=== PATIENT | female | born 1975 | race African-American/Black ===

== ENCOUNTER 2017-07-20 20:59 | Emergency (ER) | payer SELFPAY ==
[~2017-07-20] VITALS: Ht 162.6 cm; Wt 119.7 kg
[~2017-07-20 20:59] MED LIST: ASPI-231 PO; ATEN-60 PO; CLON0.2T PO; DIVA500T53 PO; FLUO20CA19 PO; HYDR-4663 PO; NIFE30TA66 PO; QUET300T14 PO; RISP2TAB62 PO; SPIR100T21 PO
[2017-07-21 03:10] VITALS: BP 146/90
[2017-07-21] MEDS ORDERED: cloNIDine HCL 0.1 MG TAB PO ONE (03:45)
[2017-07-21] MEDS ORDERED: diphenhdrAMINE HCL 25 MG CAP PO ONE (04:00)
[2017-07-21] MEDS ORDERED: KETOROLAC TROMETH 30 MG/ML 1ML VIAL IV ONE (04:00)
[2017-07-21] MEDS ORDERED: PROMETHAZINE HCL 25 MG/ML 1ML IM ONE (04:00)
[2017-07-21] MEDS ORDERED: KETOROLAC TROMETH 30 MG/ML 1ML VIAL IM ONE (04:15)
== END 2017-07-21 04:54 | disposition home or self-care (01) ==
LOC: ER 21:08 → EDUNIT# 21:08 → ER 07-21 04:53
DX: I10 Essential (primary) hypertension (principal); E11.9 Type 2 diabetes mellitus without complications
CPT/HCPCS: 70450; 96372; 99284; J1885; J2550

== ENCOUNTER 2018-02-14 19:03 | Emergency (ER) | payer MEDICARE, OTHER ==
[~2018-02-14] VITALS: Ht 165.1 cm; Wt 127.0 kg
[~2018-02-14 19:03] MED LIST changes: +DIVA500T59 PO; +FLUO-125 PO; -HYDR-4663 PO; +HYDR-4683 PO; +LEVO25TA6 PO; +NIFE90TA30 PO; +QUET300T23 PO; +TIZA4CAP7 PO; +TRIA0.1P11 TOP
[2018-02-14 19:24] VITALS: BP 193/122
[2018-02-14] MEDS ORDERED: cloNIDine HCL 0.1 MG TAB ONE (19:28)
[2018-02-14] MEDS ORDERED: cloNIDine HCL 0.1 MG TAB PO ONE (19:45)
[2018-02-14 20:31] LABS: Albumin 4.4 g/dL (3.4-5.0); BUN/Creatinine Ratio 9.2; Bilirubin, Total 0.4 mg/dL (0.2-1.0); Calcium 9.7 mg/dL (8.5-10.1); Potassium 3.4 mmol/L (3.5-5.1); Total Protein 9.6 g/dL (6.4-8.2)
[2018-02-14 21:43] LABS: Basophils # (auto) 0 uL; Basophils % (auto) 0.5 % (0.0-2.0); Eosinophils # (auto) 0.1 uL; Eosinophils % (auto) 0.8 % (0.0-7.0); Hematocrit 36.5 % (36.0-46.0); Hemoglobin 11.9 g/dL (12.2-16.2); Lymphocytes # (auto) 2.6 uL; Lymphocytes % (auto) 32.9 % (10.0-50.0); Mean Corpuscular Hemoglobin 27.7 pg (28.0-32.0); Mean Corpuscular Hgb Conc. 32.6 g/dL (32.0-36.0); Mean Corpuscular Volume 84.8 fL (80.0-100.0); Monocytes # (auto) 0.6 uL; Monocytes % (auto) 7.2 % (0.0-12.0); Neutrophils # (auto) 4.7 uL; Neutrophils % (auto) 58.6 % (37.0-80.0); Nucleated Red Blood Cells % 0.1 %; Platelet Count (auto) 294 10^3/uL (140-450); Red Cell Distribution Width 15.5 % (11.8-14.3)
== END 2018-02-14 22:23 | disposition left against medical advice (07) ==
LOC: ER 19:03
DX: R42 Dizziness and giddiness (principal); I10 Essential (primary) hypertension; Z53.21 Procedure and treatment not carried out due to patient leaving prior to being seen by health care provider
CPT/HCPCS: 36415; 70450; 80053; 83735; 84484; 85025; 93005

== ENCOUNTER 2018-06-14 19:12 | Emergency (ER) | payer MEDICARE, OTHER ==
[~2018-06-14] VITALS: Ht 165.1 cm; Wt 123.4 kg
[2018-06-14 22:51] LABS: Basophils # (auto) 0 uL; Basophils % (auto) 0.4 % (0.0-2.0); Eosinophils # (auto) 0 uL; Eosinophils % (auto) 0.7 % (0.0-7.0); Hematocrit 39.3 % (36.0-46.0); Hemoglobin 12.8 g/dL (12.2-16.2); Lymphocytes # (auto) 2.2 uL; Mean Corpuscular Hemoglobin 27.9 pg (28.0-32.0); Mean Corpuscular Hgb Conc. 32.6 g/dL (32.0-36.0); Mean Corpuscular Volume 85.6 fL (80.0-100.0); Monocytes # (auto) 0.9 uL; Monocytes % (auto) 13.4 % (0.0-12.0); Neutrophils # (auto) 3.6 uL; Neutrophils % (auto) 53.5 % (37.0-80.0); Nucleated Red Blood Cells % 0.1 %; Platelet Count (auto) 212 10^3/uL (140-450); Red Blood Cells 4.59 10^6/uL (4.0-5.20); Red Cell Distribution Width 15.8 % (11.8-14.3); White Blood Cell 6.8 10^3/uL (4.4-10.8)
[2018-06-14 23:10] LABS: Alanine Aminotransferase 15 U/L (13-56); Albumin 3.6 g/dL (3.4-5.0); Anion Gap 11 (5-15); Aspartate Aminotransferase 10 U/L (15-37); BUN/Creatinine Ratio 15.4; Blood Urea Nitrogen 18 mg/dL (7-18); Calcium 8.5 mg/dL (8.5-10.1); Carbon Dioxide 23 mmol/L (21-32); Chloride 102 mmol/L (98-107); GFR African American 64 mL/min; GFR Non-African American 53 mL/min; Glucose 98 mg/dL (74-106); Potassium 3.4 mmol/L (3.5-5.1); Sodium 136 mmol/L (136-145)
[2018-06-14 23:13] LABS: Alkaline Phosphatase 89 U/L (45-117); Bilirubin, Total 0.2 mg/dL (0.2-1.0); Total Protein 8.8 g/dL (6.4-8.2)
[2018-06-15] MEDS ORDERED: cloNIDine HCL 0.1 MG TAB PO ONE (01:00)
[2018-06-15] MEDS ORDERED: cloNIDine HCL 0.1 MG TAB ONE (01:01)
[2018-06-15 01:05] LABS: Urine Bacteria FEW /hpf (None Seen); Urine Blood 3+ /uL (Negative); Urine Specific Gravity 1.007 (1.001-1.035); Urine WBC 2 /hpf (0 - 5)
[2018-06-15 04:08] LABS: INR 0.96 (0.9-1.15); Partial Thromboplastin Time 27.8 sec (23.78-33.04); Prothrombin Time 10.3 sec (9.27-12.13)
[2018-06-15] MEDS ORDERED: HYDROcodone-ACET 5/325MG TAB PO ONE (04:15)
[2018-06-15 05:47] VITALS: BP 161/111
== END 2018-06-15 06:12 | disposition home or self-care (01) ==
LOC: ER 19:12
DX: N93.8 Other specified abnormal uterine and vaginal bleeding (principal); I10 Essential (primary) hypertension; E11.9 Type 2 diabetes mellitus without complications; Z79.899 Other long term (current) drug therapy; Z90.49 Acquired absence of other specified parts of digestive tract
CPT/HCPCS: 36415; 74176; 80053; 81001; 81025; 85025; 85379; 85610; 85730

== ENCOUNTER 2018-06-23 15:18 | Emergency (ER) | payer OTHER ==
[~2018-06-23] VITALS: Ht 165.1 cm; Wt 123.4 kg
[~2018-06-23 15:18] MED LIST changes: -SPIR100T21 PO; +SPIR100T4 PO
[2018-06-23 15:44] VITALS: BP 158/102
[2018-06-23] MEDS ORDERED: HYDROcodone-ACET 10/325MG TAB PO ONE (17:15)
[2018-06-23] MEDS ORDERED: KETOROLAC TROMETH 60MG/2ML VIAL IM ONE (17:15)
[2018-06-23 17:55] LABS: Urine Amorphous Crystal FEW /hpf (None Seen); Urine Bacteria FEW /hpf (None Seen); Urine Blood Negative /uL (Negative); Urine Mucus FEW (None Seen); Urine Specific Gravity 1.013 (1.001-1.035); Urine WBC 23 /hpf (0 - 5)
== END 2018-06-23 18:17 | disposition home or self-care (01) ==
LOC: ER 15:24
DX: N39.0 Urinary tract infection, site not specified (principal); E11.9 Type 2 diabetes mellitus without complications; I10 Essential (primary) hypertension; Z90.49 Acquired absence of other specified parts of digestive tract; Z98.51 Tubal ligation status
CPT/HCPCS: 81001; 96372; 99283; J1885

== ENCOUNTER 2020-07-09 08:02 | Inpatient (IN) | payer OTHER, MEDICAID ==
[~2020-07-09] VITALS: Ht 160 cm; Wt 96.7 kg
[~2020-07-09 08:02] MED LIST changes: +DIVA500T13 PO; -DIVA500T59 PO; -HYDR-4683 PO; +HYDR-4833 PO; -NIFE90TA30 PO; +NIFE90TA49 PO
[2020-07-09] MEDS ORDERED: cloNIDine HCL 0.1 MG TAB PO ONE (08:30)
[2020-07-09] MEDS ORDERED: SODIUM CHLORIDE 0.9% 1,000 ML IV ONE (08:30)
[2020-07-09 09:11] LABS: Basophils # (auto) 0 10 ^3/uL (0-0.2); Eosinophils # (auto) 0.1 10 ^3/uL (0-0.8); Eosinophils % (auto) 1.4 % (0.0-7.0); Hemoglobin 10.3 g/dL (12.2-16.2); Mean Corpuscular Volume 79.7 fL (80.0-100.0); Monocytes # (auto) 0.5 10 ^3/uL (0-1.3); White Blood Cell 5.2 10^3/uL (4.4-10.8)
[2020-07-09 09:13] LABS: Basophils % (auto) 0.8 % (0.0-2.0); Hematocrit 31.3 % (36.0-46.0); Lymphocytes # (auto) 1.8 10 ^3/uL (0.4-5.4); Lymphocytes % (auto) 34.3 % (10.0-50.0); Mean Corpuscular Hemoglobin 26.2 pg (28.0-32.0); Mean Corpuscular Hgb Conc. 32.9 g/dL (32.0-36.0); Monocytes % (auto) 8.8 % (0.0-12.0); Neutrophils # (auto) 2.8 10 ^3/uL (1.6-8.6); Neutrophils % (auto) 54.7 % (37.0-80.0); Nucleated Red Blood Cells % 0.1 %; Platelet Count (auto) 280 10^3/uL (140-450); Red Blood Cells 3.93 10^6/uL (4.0-5.20); Red Cell Distribution Width 15.9 % (11.8-14.3)
[2020-07-09 09:27] LABS: INR 1.03 (0.9-1.15); Partial Thromboplastin Time 27.7 sec (23.0-31.2)
[2020-07-09 09:29] LABS: Alanine Aminotransferase 17 U/L (13-56); Albumin 3.5 g/dL (3.4-5.0); Anion Gap 6 (5-15); Aspartate Aminotransferase 16 U/L (15-37); Blood Urea Nitrogen 13 mg/dL (7-18); Calcium 8.7 mg/dL (8.5-10.1); Carbon Dioxide 27 mmol/L (21-32); Chloride 106 mmol/L (98-107); GFR African American 83 mL/min; GFR Non-African American 69 mL/min; Glucose 98 mg/dL (74-106); Magnesium 1.8 mg/dL (1.6-2.6); Potassium 3.1 mmol/L (3.5-5.1); Sodium 139 mmol/L (136-145)
[2020-07-09 09:34] LABS: Alkaline Phosphatase 80 U/L (45-117); Bilirubin, Total 0.3 mg/dL (0.2-1.0); Total Protein 7.5 g/dL (6.4-8.2)
[2020-07-09] MEDS ORDERED: NITROGLYCERIN 50MG/250ML 0 ML IV ONE (09:36)
[2020-07-09 09:53] LABS: Urine Bacteria FEW /hpf (None Seen); Urine Blood Negative /uL (Negative); Urine Specific Gravity 1.014 (1.001-1.035); Urine WBC 2 /hpf (0 - 5)
[2020-07-09] MEDS ORDERED: POTASSIUM EFFERVESENT TAB 25 MEQ PO ONE (11:45)
[2020-07-09] MEDS ORDERED: ACETAMINOPHEN 500 MG TAB PO ONE (13:15)
[2020-07-09] MEDS ORDERED: HYDR-4072 (13:43)
[2020-07-09] MEDS ORDERED: TIZA4TAB3 PO (13:43)
[2020-07-09] MEDS ORDERED: SIMV-8 PO (13:43)
[2020-07-09] MEDS ORDERED: FLUO20CA90 PO (13:43)
[2020-07-09] MEDS ORDERED: amLODIPine BESYLATE 5 MG TAB PO SCH (13:45)
[2020-07-09] MEDS ORDERED: HYDROcodone-ACET 10/325MG TAB PO PRN (13:45)
[2020-07-09] MEDS ORDERED: cloNIDine HCL 0.1 MG TAB PO SCH (14:00)
[2020-07-09] MEDS ORDERED: NITROGLYCERIN 0.4 MG SL TAB SL PRN (14:00)
[2020-07-09] MEDS ORDERED: MORPHINE SULF INJ 2 MG/ML SYRINGE 1ML IV PRN (14:00)
[2020-07-09] MEDS ORDERED: METOPROLOL TARTRATE 25 MG TAB PO SCH (14:00)
[2020-07-09 19:25] VITALS: BP 168/98
[2020-07-09] MEDS ORDERED: ENALAPRIL MALEATE 2.5 MG TAB PO PRN (20:45)
[2020-07-10] MEDS ORDERED: FLUoxetine HCL 20 MG CAP PO SCH (10:00)
== END 2020-07-09 21:15 | disposition left against medical advice (07) | DRG 305 ==
LOC: ER 08:02 → OVERFLOW 08:03
PROVIDERS: ADMIT Internal Medicine; ATTEND Internal Medicine
DX: I16.9 Hypertensive crisis, unspecified (principal); I10 Essential (primary) hypertension; D63.8 Anemia in other chronic diseases classified elsewhere; E11.9 Type 2 diabetes mellitus without complications; E78.5 Hyperlipidemia, unspecified; E87.6 Hypokalemia; F32.9 Major depressive disorder, single episode, unspecified; F41.9 Anxiety disorder, unspecified; Z82.3 Family history of stroke; Z82.49 Family history of ischemic heart disease and other diseases of the circulatory system; Z83.3 Family history of diabetes mellitus; Z90.5 Acquired absence of kidney; Z79.899 Other long term (current) drug therapy
CPT/HCPCS: 36415; 71046; 80053; 81001; 83735; 83880; 84443; 84484; 85025; 85610; 85730; 93005; 96361; 96365; G0378

== ENCOUNTER 2020-10-09 22:11 | Inpatient (IN) | payer OTHER, MEDICAID ==
[~2020-10-09] VITALS: Ht 160 cm; Wt 99.8 kg
[~2020-10-09 22:11] MED LIST changes: +FLUO20CA90 PO; +HYDR-4072; +SIMV-8 PO; +TIZA4TAB3 PO
[2020-10-09] MEDS ORDERED: cloNIDine HCL 0.1 MG TAB ONE (22:28)
[2020-10-09] MEDS ORDERED: cloNIDine HCL 0.1 MG TAB PO ONE (22:45)
[2020-10-09 23:25] LABS: Eosinophils # (auto) 0.1 10 ^3/uL (0-0.8); Eosinophils % (auto) 1.3 % (0.0-7.0); Monocytes # (auto) 0.7 10 ^3/uL (0-1.3); Neutrophils # (auto) 3.7 10 ^3/uL (1.6-8.6)
[2020-10-09 23:26] LABS: Basophils # (auto) 0 10 ^3/uL (0-0.2); Basophils % (auto) 0.7 % (0.0-2.0); Hematocrit 32.2 % (36.0-46.0); Hemoglobin 10.6 g/dL (12.2-16.2); Lymphocytes # (auto) 2.1 10 ^3/uL (0.4-5.4); Lymphocytes % (auto) 31.7 % (10.0-50.0); Mean Corpuscular Hemoglobin 24.8 pg (28.0-32.0); Mean Corpuscular Hgb Conc. 32.8 g/dL (32.0-36.0); Mean Corpuscular Volume 75.8 fL (80.0-100.0); Monocytes % (auto) 11.1 % (0.0-12.0); Neutrophils % (auto) 55.2 % (37.0-80.0); Platelet Count (auto) 293 10^3/uL (140-450); Red Blood Cells 4.25 10^6/uL (4.0-5.20); White Blood Cell 6.7 10^3/uL (4.4-10.8)
[2020-10-09 23:36] LABS: INR 0.99 (0.9-1.15); Partial Thromboplastin Time 26.2 sec (23.0-31.2)
[2020-10-09 23:47] LABS: Albumin 3.7 g/dL (3.4-5.0); Anion Gap 9 (5-15); BUN/Creatinine Ratio 20.3; Blood Urea Nitrogen 26 mg/dL (7-18); Calcium 8.8 mg/dL (8.5-10.1); Carbon Dioxide 23 mmol/L (21-32); Chloride 107 mmol/L (98-107); GFR African American 57 mL/min; GFR Non-African American 48 mL/min; Glucose 97 mg/dL (74-106); Magnesium 1.8 mg/dL (1.6-2.6); Potassium 3.6 mmol/L (3.5-5.1); Sodium 139 mmol/L (136-145)
[2020-10-09 23:58] LABS: Alanine Aminotransferase 18 U/L (13-56); Alkaline Phosphatase 86 U/L (45-117); Aspartate Aminotransferase 11 U/L (15-37); Bilirubin, Total 0.2 mg/dL (0.2-1.0); Total Protein 8.2 g/dL (6.4-8.2)
[2020-10-10] MEDS ORDERED: hydrALAZINE HCL 20 MG/ML VL IV ONE ×2 (01:45→05:45)
[2020-10-10] MEDS ORDERED: MORPHINE SULF INJ 2 MG/ML SYRINGE 1ML IV ONE (02:45)
[2020-10-10] MEDS ORDERED: ONDANSETRON HCL 4 MG/2 ML VIAL IV ONE (02:45)
[2020-10-10] MEDS ORDERED: IOHEXOL 350 MG/ML 100ML IJ ONE (03:34)
[2020-10-10] MEDS ORDERED: ACETAMINOPHEN 325 MG TAB PO PRN (08:00)
[2020-10-10] MEDS ORDERED: ONDANSETRON HCL 4 MG/2 ML VIAL IV PRN (08:00)
[2020-10-10] MEDS ORDERED: MORPHINE SULF INJ 2 MG/ML SYRINGE 1ML IV PRN (08:00)
[2020-10-10] MEDS ORDERED: TEMAZEPAM 15 MG CAP PO PRN (08:00)
[2020-10-10] MEDS ORDERED: HYDROcodone-ACET 5/325MG TAB PO PRN (08:00)
[2020-10-10] MEDS ORDERED: NITROGLYCERIN 0.4 MG SL TAB SL PRN (08:00)
[2020-10-10] MEDS ORDERED: PANTOPRAZOLE 40 MG TAB PO SCH (10:00)
[2020-10-10] MEDS ORDERED: NIFEdipine ER 30 MG TAB PO SCH (10:00)
[2020-10-10] MEDS ORDERED: ASPirin 81 mg TAB PO SCH (10:00)
[2020-10-10] MEDS ORDERED: ATENOLOL 25 MG TAB PO SCH (10:00)
[2020-10-10] MEDS ORDERED: FLUoxetine HCL 20 MG CAP PO SCH (10:00)
[2020-10-10 12:58] VITALS: BP 143/81
[2020-10-10] MEDS ORDERED: ATORVASTATIN 20 MG TAB PO SCH (22:00)
[2020-10-11] MEDS ORDERED: LEVOTHYROXINE SODIUM 25 MCG TAB PO SCH (07:00)
== END 2020-10-10 17:55 | disposition home health service (06) | DRG 445 ==
LOC: EDBD 22:11 → ER 22:13 → OVERFLOW 22:14
PROVIDERS: ADMIT Nurse Practitioner; ATTEND Internal Medicine
DX: K80.20 Calculus of gallbladder without cholecystitis without obstruction (principal); N17.9 Acute kidney failure, unspecified; I16.0 Hypertensive urgency; E11.22 Type 2 diabetes mellitus with diabetic chronic kidney disease; E66.01 Morbid (severe) obesity due to excess calories; F31.9 Bipolar disorder, unspecified; I12.9 Hypertensive chronic kidney disease with stage 1 through stage 4 chronic kidney disease, or unspecified chronic kidney disease; F41.0 Panic disorder [episodic paroxysmal anxiety]; R07.89 Other chest pain; E03.9 Hypothyroidism, unspecified; E78.5 Hyperlipidemia, unspecified; N18.30 Chronic kidney disease, stage 3 unspecified; Z82.3 Family history of stroke; Z90.49 Acquired absence of other specified parts of digestive tract; Z98.51 Tubal ligation status; Z82.49 Family history of ischemic heart disease and other diseases of the circulatory system; Z83.3 Family history of diabetes mellitus; Z90.5 Acquired absence of kidney
CPT/HCPCS: 36415; 71045; 71275; 74176; 76705; 76775; 80053; 83735; 83880; 84443; 84484; 85025; 85379; 85610; 85730; 87040; 93005; 93306; 99291; G0378; J2405

== ENCOUNTER 2021-05-31 14:06 | Inpatient (IN) | payer OTHER, MEDICAID ==
[~2021-05-31] VITALS: Ht 162.6 cm; Wt 97.5 kg
[~2021-05-31 14:06] MED LIST changes: -DIVA500T13 PO; +DIVA500T2 PO; -DIVA500T53 PO; -FLUO-125 PO; -FLUO20CA90 PO; -HYDR-4833 PO; -NIFE30TA66 PO; -QUET300T23 PO; -TIZA4CAP7 PO; -TRIA0.1P11 TOP
[2021-05-31 16:47] LABS: Basophils # (auto) 0.1 10 ^3/uL (0-0.2); Eosinophils # (auto) 0 10 ^3/uL (0-0.8); Eosinophils % (auto) 0.4 % (0.0-7.0); Hemoglobin 11.5 g/dL (12.2-16.2); Lymphocytes # (auto) 1.4 10 ^3/uL (0.4-5.4); Lymphocytes % (auto) 18.7 % (10.0-50.0); Mean Corpuscular Hemoglobin 22.6 pg (28.0-32.0); Mean Corpuscular Hgb Conc. 31.9 g/dL (32.0-36.0); Mean Corpuscular Volume 70.9 fL (80.0-100.0); Monocytes # (auto) 0.4 10 ^3/uL (0-1.3); Monocytes % (auto) 4.9 % (0.0-12.0); Neutrophils # (auto) 5.6 10 ^3/uL (1.6-8.6); Nucleated Red Blood Cells % 0.1 %; Red Blood Cells 5.08 10^6/uL (4.0-5.20); Red Cell Distribution Width 18.9 % (11.8-14.3); White Blood Cell 7.5 10^3/uL (4.4-10.8)
[2021-05-31 17:09] LABS: Alanine Aminotransferase 17 U/L (13-56); Albumin 3.6 g/dL (3.4-5.0); Anion Gap 8 (5-15); Aspartate Aminotransferase 14 U/L (15-37); BUN/Creatinine Ratio 11.3; Blood Urea Nitrogen 12 mg/dL (7-18); Carbon Dioxide 28 mmol/L (21-32); Chloride 101 mmol/L (98-107); GFR African American 71 mL/min; GFR Non-African American 59 mL/min; Glucose 91 mg/dL (74-106); Potassium 3.1 mmol/L (3.5-5.1); Sodium 137 mmol/L (136-145)
[2021-05-31 17:13] LABS: Alkaline Phosphatase 96 U/L (45-117); Bilirubin, Total 0.5 mg/dL (0.2-1.0); Total Protein 8.8 g/dL (6.4-8.2)
[2021-05-31 18:25] LABS: Urine Bacteria NONE SEEN /hpf (None Seen); Urine Blood Negative /uL (Negative); Urine Hyaline Cast FEW /lpf (0 - 2); Urine WBC 1 /hpf (0 - 5)
[2021-05-31] MEDS ORDERED: HYDROcodone-ACET 5/325MG TAB PO ONE (20:30)
[2021-05-31] MEDS ORDERED: ONDANSETRON ODT 4 MG TAB PO ONE ×2 (20:36→22:30)
[2021-05-31] MEDS ORDERED: ONDANSETRON HCL 4 MG/2 ML VIAL IV PRN (23:30)
[2021-05-31] MEDS ORDERED: NITROGLYCERIN 0.4 MG SL TAB SL PRN (23:30)
[2021-05-31] MEDS ORDERED: ACETAMINOPHEN 325 MG TAB PO PRN (23:30)
[2021-05-31] MEDS ORDERED: POTASSIUM CHL 20 Meq TABLET PO ONE (23:30)
[2021-05-31] MEDS ORDERED: DEXTROSE (50%) 50ML SYRG IV PRN (23:30)
[2021-05-31] MEDS ORDERED: SODIUM CHLORIDE 0.9% 1,000 ML IV SCH (23:30)
[2021-05-31] MEDS ORDERED: MORPHINE SULFATE INJECTION 2 MG/2 ML SYRG IV PRN (23:30)
[2021-06-01] VITALS (7 sets, daily range): BP systolic 157–177; BP diastolic 99–110
[2021-06-01] MEDS: hydrALAZINE HCL 20 MG/ML VL IV PRN ×3 (02:53→21:39)
[2021-06-01] MEDS: MORPHINE SULFATE 4 MG/ML SYR/VIAL IV PRN ×3 (02:53→21:39)
[2021-06-01] MEDS ORDERED: ONDA-144 PO (03:44)
[2021-06-01] MEDS ORDERED: HYDR-4072 PO (03:46)
[2021-06-01] MEDS ORDERED: LISI40TA11 PO (03:48)
[2021-06-01 05:51] LABS: Basophils # (auto) 0 10 ^3/uL (0-0.2); Eosinophils # (auto) 0 10 ^3/uL (0-0.8); Hematocrit 32.7 % (36.0-46.0); Hemoglobin 10.6 g/dL (12.2-16.2); Monocytes # (auto) 0.6 10 ^3/uL (0-1.3)
[2021-06-01 05:54] LABS: Basophils % (auto) 0.4 % (0.0-2.0); Eosinophils % (auto) 0.4 % (0.0-7.0); Lymphocytes # (auto) 2.2 10 ^3/uL (0.4-5.4); Lymphocytes % (auto) 31.8 % (10.0-50.0); Mean Corpuscular Hgb Conc. 32.4 g/dL (32.0-36.0); Monocytes % (auto) 8.8 % (0.0-12.0); Neutrophils # (auto) 4.1 10 ^3/uL (1.6-8.6); Neutrophils % (auto) 58.6 % (37.0-80.0); Nucleated Red Blood Cells % 0.1 %; Red Cell Distribution Width 18.7 % (11.8-14.3)
[2021-06-01 06:10] LABS: Albumin 3.2 g/dL (3.4-5.0); BUN/Creatinine Ratio 14.7; Bilirubin, Total 0.6 mg/dL (0.2-1.0); Calcium 8.8 mg/dL (8.5-10.1); Total Protein 7.9 g/dL (6.4-8.2)
[2021-06-01 06:41] LABS: Potassium 2.8 mmol/L (3.5-5.1)
[2021-06-01] MEDS: ACCU-CHEK COMFORT CURVE STRIP VI SCH ×4 (07:00→22:00)
[2021-06-01] MEDS: InsuLIN REG 1unit/0.01ml Soln (100units/ml) SC SCH ×4 (07:00→22:00)
[2021-06-01] MEDS ORDERED: POTASSIUM CHL 20MEQ/50ML 50 ML IV SCH (09:30)
[2021-06-01] MEDS: SODIUM CHLORIDE 0.9% 1,000 ML IV SCH ×2 (10:00→20:00)
[2021-06-01] MEDS ORDERED: FAMOTIDINE (10MG/ML) 2ML VL IV SCH (10:00)
[2021-06-01] MEDS: POTASSIUM CHL 20MEQ/50ML 50 ML IV SCH ×2 (10:04→15:00)
[2021-06-01] MEDS ORDERED: POTASSIUM CHL 20 Meq TABLET PO ONE ×2 (10:45→11:15)
[2021-06-01] MEDS: ENOXAPARIN SOD 40 MG/0.4 ML SYRINGE SC SCH (11:01)
[2021-06-01] MEDS: NIFEdipine ER 30 MG TAB PO SCH (11:17)
[2021-06-01 11:54] LABS: INR 1.02 (0.9-1.15)
[2021-06-01] MEDS: metroNIDAZOLE 500MG/100ML 100 ML IV SCH ×2 (14:00→19:45)
[2021-06-01] MEDS: PANTOPRAZOLE 40 MG/10 ML VIAL INJ IV SCH ×2 (16:01→21:38)
[2021-06-01] MEDS: SUCRALFATE 1 GM/10 ML ORAL SUSP PO SCH ×3 (16:01→21:38)
[2021-06-01] MEDS: HYDROcodone-ACET 5/325MG TAB PO PRN (16:02)
[2021-06-01] MEDS: levoFLOXacin 500MG 100 ML IV SCH (21:38)
[2021-06-02] MEDS: metroNIDAZOLE 500MG/100ML 100 ML IV SCH ×3 (00:59→14:00)
[2021-06-02] MEDS: MORPHINE SULFATE 4 MG/ML SYR/VIAL IV PRN (02:35)
[2021-06-02] MEDS: SODIUM CHLORIDE 0.9% 1,000 ML IV SCH ×2 (04:53→16:01)
[2021-06-02 05:00] VITALS: BP 153/85
[2021-06-02 06:31] LABS: Basophils # (auto) 0 10 ^3/uL (0-0.2); Eosinophils # (auto) 0.1 10 ^3/uL (0-0.8); Hemoglobin 9.6 g/dL (12.2-16.2); Monocytes # (auto) 0.5 10 ^3/uL (0-1.3); Neutrophils # (auto) 2.7 10 ^3/uL (1.6-8.6)
[2021-06-02 06:32] LABS: Albumin 3.3 g/dL (3.4-5.0); Calcium 8.7 mg/dL (8.5-10.1); Potassium 3.2 mmol/L (3.5-5.1)
[2021-06-02 06:34] LABS: Basophils % (auto) 0.4 % (0.0-2.0); Eosinophils % (auto) 2.4 % (0.0-7.0); Hematocrit 29.4 % (36.0-46.0); Lymphocytes # (auto) 1.6 10 ^3/uL (0.4-5.4); Lymphocytes % (auto) 31.7 % (10.0-50.0); Mean Corpuscular Hemoglobin 23.1 pg (28.0-32.0); Mean Corpuscular Hgb Conc. 32.5 g/dL (32.0-36.0); Monocytes % (auto) 10.4 % (0.0-12.0); Neutrophils % (auto) 55.1 % (37.0-80.0); Red Blood Cells 4.14 10^6/uL (4.0-5.20); Red Cell Distribution Width 18.4 % (11.8-14.3)
[2021-06-02 06:36] LABS: BUN/Creatinine Ratio 12.4; Bilirubin, Total 0.8 mg/dL (0.2-1.0); Total Protein 8.2 g/dL (6.4-8.2)
[2021-06-02] MEDS: InsuLIN REG 1unit/0.01ml Soln (100units/ml) SC SCH ×3 (07:00→17:00)
[2021-06-02] MEDS: SUCRALFATE 1 GM/10 ML ORAL SUSP PO SCH ×3 (07:00→17:00)
[2021-06-02] MEDS: ACCU-CHEK COMFORT CURVE STRIP VI SCH ×3 (07:05→17:00)
[2021-06-02] MEDS ORDERED: LIDOCAINE VISCOUS 2% 15ML UD ONE (08:22)
[2021-06-02] MEDS ORDERED: SODIUM CHLORIDE LOCK 10 ML ONE (08:22)
[2021-06-02] MEDS ORDERED: diphenhdrAMINE HCL 50 MG/1 ML VL ONE (08:23)
[2021-06-02 08:35] VITALS: BP 150/88
[2021-06-02] MEDS: fentaNYL CITRATE 100 MCG/2 ML VL ONE ×2 (09:24→09:27)
[2021-06-02] MEDS: MIDAZOLAM HCL 5 MG/ML-1ML VIAL ONE ×2 (09:24→09:27)
[2021-06-02] MEDS: NIFEdipine ER 30 MG TAB PO SCH (10:00)
[2021-06-02] MEDS ORDERED: LISINOPRIL 20 MG TAB PO SCH (11:45)
[2021-06-02] MEDS ORDERED: SERTRALINE HCL 50 MG TAB PO SCH (11:45)
[2021-06-02] MEDS ORDERED: POTASSIUM CHL 20 Meq TABLET PO ONE (11:45)
[2021-06-02] MEDS ORDERED: FLUoxetine HCL 20 MG CAP PO SCH (11:45)
[2021-06-02] MEDS ORDERED: CHLO50TA PO (11:50)
[2021-06-02] MEDS ORDERED: FLUO20CA90 PO (11:50)
[2021-06-02] MEDS ORDERED: LEVO500T31 PO (12:12)
[2021-06-02] MEDS ORDERED: PANT40TA2 PO (12:12)
[2021-06-02] MEDS ORDERED: METR500T PO (12:12)
[2021-06-02] MEDS ORDERED: POTA-180 PO (12:12)
[2021-06-02] MEDS: HYDROcodone-ACET 5/325MG TAB PO PRN (12:30)
[2021-06-02] MEDS: ENOXAPARIN SOD 40 MG/0.4 ML SYRINGE SC SCH (12:30)
[2021-06-02] MEDS: PANTOPRAZOLE 40 MG/10 ML VIAL INJ IV SCH (12:30)
[2021-06-02] MEDS: levoFLOXacin 500MG 100 ML IV SCH (12:30)
[2021-06-02 13:00] VITALS: BP 157/95
[2021-06-02 17:00] VITALS: BP_SYST 155; BP_SYST 158; BP_DIAS 98
[2021-06-02 19:04] VITALS: BP 157/95
== END 2021-06-02 20:05 | disposition home or self-care (01) | DRG 392 ==
LOC: ER 14:06 → EDBD 14:06 → OVERFLOW 23:16 → WEST WING 23:50
PROVIDERS: ADMIT Nurse Practitioner Family; ATTEND Internal Medicine
PROC: 05HD33Z Insertion of Infusion Device into Right Cephalic Vein, Percutaneous Approach (ICD-10-PCS; 2021-06-01)
PROC: B54MZZA Ultrasonography of Right Upper Extremity Veins, Guidance (ICD-10-PCS; 2021-06-01)
PROC: 0DB68ZX Excision of Stomach, Via Natural or Artificial Opening Endoscopic, Diagnostic (ICD-10-PCS; principal; 2021-06-02 09:20)
DX: K29.70 Gastritis, unspecified, without bleeding (principal); J98.11 Atelectasis; K52.9 Noninfective gastroenteritis and colitis, unspecified; I10 Essential (primary) hypertension; Z68.36 Body mass index [BMI] 36.0-36.9, adult; E78.5 Hyperlipidemia, unspecified; E87.6 Hypokalemia; F20.9 Schizophrenia, unspecified; E11.9 Type 2 diabetes mellitus without complications; R07.89 Other chest pain; Z20.822 Contact with and (suspected) exposure to COVID-19; E66.9 Obesity, unspecified; F31.9 Bipolar disorder, unspecified; Z80.1 Family history of malignant neoplasm of trachea, bronchus and lung; Z82.3 Family history of stroke; Z82.49 Family history of ischemic heart disease and other diseases of the circulatory system; Z83.3 Family history of diabetes mellitus; Z90.49 Acquired absence of other specified parts of digestive tract; Z90.5 Acquired absence of kidney; Z98.51 Tubal ligation status
CPT/HCPCS: 36415; 43239; 71045; 74176; 80053; 81001; 82962; 83036; 84132; 84443; 84484; 84702; 85025; 85610; 86850; 86900; 86901; 87426; 93005; 96360; C9113; G0378; J1956; J2250; J2405; J3490; Q0162

== ENCOUNTER 2022-07-06 11:10 | Emergency (ER) | payer OTHER, MEDICAID ==
[~2022-07-06] VITALS: Ht 165.1 cm; Wt 123.0 kg
[~2022-07-06 11:10] MED LIST changes: -ASPI-231 PO; -ATEN-60 PO; +CHLO50TA PO; -DIVA500T2 PO; -FLUO20CA19 PO; +FLUO20CA90 PO; -HYDR-4072; +HYDR-4072 PO; -LEVO25TA6 PO; +LEVO500T31 PO; +LISI40TA11 PO; +METR500T PO; -NIFE90TA49 PO; +PANT40TA2 PO; +POTA-180 PO; -RISP2TAB62 PO; -SIMV-8 PO; -SPIR100T4 PO; -TIZA4TAB3 PO; +TIZA4TAB7 PO
[2022-07-06 11:21] VITALS: BP 183/92
[2022-07-06] MEDS ORDERED: CYCLOBENZAPRINE HCL 10 MG TAB PO ONE (11:45)
[2022-07-06] MEDS ORDERED: KETOROLAC TROMETH 60MG/2ML VIAL IM ONE (11:45)
[2022-07-06 11:49] LABS: Basophils # (auto) 0 10 ^3/uL (0-0.2); Basophils % (auto) 0.3 % (0.0-2.0); Eosinophils # (auto) 0 10 ^3/uL (0-0.8); Eosinophils % (auto) 0.7 % (0.0-7.0); Hematocrit 28.4 % (36.0-46.0); Hemoglobin 8.7 g/dL (12.2-16.2); Lymphocytes # (auto) 1.5 10 ^3/uL (0.4-5.4); Lymphocytes % (auto) 35.1 % (10.0-50.0); Mean Corpuscular Hgb Conc. 30.7 g/dL (32.0-36.0); Mean Corpuscular Volume 68.3 fL (80.0-100.0); Monocytes # (auto) 0.4 10 ^3/uL (0-1.3); Monocytes % (auto) 9.2 % (0.0-12.0); Neutrophils # (auto) 2.3 10 ^3/uL (1.6-8.6); Neutrophils % (auto) 54.7 % (37.0-80.0); Red Blood Cells 4.15 10^6/uL (4.0-5.20); Red Cell Distribution Width 20.9 % (11.8-14.3); White Blood Cell 4.2 10^3/uL (4.4-10.8)
[2022-07-06] MEDS ORDERED: ACETAMINOPHEN 325 MG TAB PO ONE (12:15)
[2022-07-06 12:31] LABS: Albumin 3.7 g/dL (3.4-5.0); Potassium 3.2 mmol/L (3.5-5.1)
[2022-07-06 12:36] LABS: BUN/Creatinine Ratio 13.8; Bilirubin, Total 0.3 mg/dL (0.2-1.0); Total Protein 8.8 g/dL (6.4-8.2)
[2022-07-06] MEDS ORDERED: CYCL-611 PO (13:28)
== END 2022-07-06 20:17 | disposition left against medical advice (07) ==
LOC: ER 11:10
DX: R07.89 Other chest pain (principal); I10 Essential (primary) hypertension; E11.9 Type 2 diabetes mellitus without complications; Z90.49 Acquired absence of other specified parts of digestive tract; Z79.899 Other long term (current) drug therapy; Z88.6 Allergy status to analgesic agent; Z91.018 Allergy to other foods
CPT/HCPCS: 36415; 71046; 80053; 84484; 85025; 93005

== ENCOUNTER 2023-04-17 10:18 | Inpatient (IN) | payer OTHER, MEDICAID ==
[~2023-04-17] VITALS: Ht 157.5 cm; Wt 118.4 kg
[~2023-04-17 10:18] MED LIST changes: +CYCL-611 PO; -LISI40TA11 PO; +LISI40TA16 PO; +TIZA-142 PO; -TIZA4TAB7 PO
[2023-04-17 11:13] LABS: Basophils # (auto) 0 10 ^3/uL (0-0.2); Basophils % (auto) 0.3 % (0.0-2.0); Eosinophils # (auto) 0.1 10 ^3/uL (0-0.8); Eosinophils % (auto) 1.6 % (0.0-7.0); Hematocrit 32.7 % (36.0-46.0); Hemoglobin 10.8 g/dL (12.2-16.2); Lymphocytes # (auto) 1.7 10 ^3/uL (0.4-5.4); Lymphocytes % (auto) 28.6 % (10.0-50.0); Mean Corpuscular Hemoglobin 27.9 pg (28.0-32.0); Mean Corpuscular Volume 84.5 fL (80.0-100.0); Monocytes # (auto) 0.5 10 ^3/uL (0-1.3); Monocytes % (auto) 8.4 % (0.0-12.0); Neutrophils # (auto) 3.7 10 ^3/uL (1.6-8.6); Neutrophils % (auto) 61.1 % (37.0-80.0); Nucleated Red Blood Cells % 0.2 %; Red Blood Cells 3.87 10^6/uL (4.0-5.20); Red Cell Distribution Width 14.7 % (11.8-14.3)
[2023-04-17 11:38] LABS: Albumin 3.3 g/dL (3.4-5.0); Calcium 8.2 mg/dL (8.5-10.1); Potassium 3.2 mmol/L (3.5-5.1)
[2023-04-17 11:44] LABS: Bilirubin, Total 0.4 mg/dL (0.2-1.0); Total Protein 7.5 g/dL (6.4-8.2)
[2023-04-17] MEDS ORDERED: POTASSIUM EFFERVESENT TAB 25 MEQ PO ONE ×2 (13:30→15:30)
[2023-04-17] MEDS ORDERED: ACETAMINOPHEN 325 MG TAB PO PRN (15:30)
[2023-04-17] MEDS ORDERED: ONDANSETRON HCL 4 MG/2 ML VIAL IV PRN (15:30)
[2023-04-17] MEDS: METOPROLOL TARTRATE 25 MG TAB PO SCH (22:36)
[2023-04-17] MEDS ORDERED: NIFE1TAB30 PO (22:56)
[2023-04-17] MEDS ORDERED: PANT1INJ3 PO (22:56)
[2023-04-17] MEDS ORDERED: PREG75CA PO (22:56)
[2023-04-17] MEDS ORDERED: CARV25TA55 PO (22:56)
[2023-04-17] MEDS ORDERED: QUET300T24 PO (22:56)
[2023-04-17] MEDS ORDERED: POTA10TA51 PO (22:56)
[2023-04-17] MEDS ORDERED: TIZA4CAP PO (22:56)
[2023-04-17] MEDS ORDERED: FLUO-125 PO (22:56)
[2023-04-17] MEDS ORDERED: LISI40TA16 PO (22:56)
[2023-04-17] MEDS ORDERED: CHOL20007 PO (22:56)
[2023-04-17] MEDS ORDERED: BACDST PO (22:56)
[2023-04-17] MEDS ORDERED: FERR325T24 PO (22:56)
[2023-04-17] MEDS ORDERED: HYDR-4297 PO (22:56)
[2023-04-17] MEDS ORDERED: HYDR-4798 PO (22:56)
[2023-04-17] MEDS ORDERED: LABETALOL HCL 5 MG/ML 4ML SYRINGE IV PRN (23:15)
[2023-04-17] MEDS ORDERED: hydrALAZINE HCL 20 MG/ML VL IV PRN (23:15)
[2023-04-18] MEDS: HYDROcodone-ACET 5/325MG TAB PO PRN ×2 (00:20→06:30)
[2023-04-18 00:27] VITALS: BP 161/102
[2023-04-18] MEDS: SODIUM CHLORIDE 0.9% 1,000 ML IV SCH ×2 (01:30→06:34)
[2023-04-18 04:49] VITALS: BP 140/99
[2023-04-18 06:09] LABS: Potassium 3.2 mmol/L (3.5-5.1)
[2023-04-18 06:14] LABS: BUN/Creatinine Ratio 18.9 (10.0-20.0); Calcium 8.7 mg/dL (8.5-10.1)
[2023-04-18 09:00] VITALS: BP 124/73
[2023-04-18] MEDS ORDERED: FLUoxetine HCL 20 MG CAP PO SCH (10:00)
[2023-04-18] MEDS ORDERED: PANTOPRAZOLE 40 MG TAB PO SCH (10:00)
[2023-04-18] MEDS ORDERED: POTASSIUM EFFERVESENT TAB 25 MEQ PO ONE (10:45)
[2023-04-18] MEDS ORDERED: IOHEXOL 350 MG/ML 100ML IJ ONE (12:09)
[2023-04-18 13:00] VITALS: BP 150/89
[2023-04-18] MEDS: METOPROLOL TARTRATE 25 MG TAB PO SCH (13:16)
[2023-04-18 14:40] LABS: Cholesterol 225 mg/dL (< 200); HDL Cholesterol 55 mg/dL (40-59); LDL Cholesterol 133 mg/dL (< 100); Triglycerides 106 mg/dL (< 150)
[2023-04-18 17:00] VITALS: BP 160/112
== END 2023-04-18 22:20 | disposition home health service (06) | DRG 74 ==
LOC: ER 10:18 → TELE 15:32 → TELE-WESTW 22:20
PROVIDERS: ADMIT Internal Medicine; ATTEND Internal Medicine
DX: M54.12 Radiculopathy, cervical region (principal); N17.9 Acute kidney failure, unspecified; G81.91 Hemiplegia, unspecified affecting right dominant side; G89.29 Other chronic pain; M19.90 Unspecified osteoarthritis, unspecified site; G62.9 Polyneuropathy, unspecified; K21.9 Gastro-esophageal reflux disease without esophagitis; E87.6 Hypokalemia; I10 Essential (primary) hypertension; F32.A Depression, unspecified; Z80.1 Family history of malignant neoplasm of trachea, bronchus and lung; Z82.3 Family history of stroke; Z82.49 Family history of ischemic heart disease and other diseases of the circulatory system; Z83.3 Family history of diabetes mellitus; Z90.49 Acquired absence of other specified parts of digestive tract; Z88.6 Allergy status to analgesic agent; Z91.040 Latex allergy status; Z91.018 Allergy to other foods
CPT/HCPCS: 36415; 70450; 70496; 70551; 72141; 80048; 80053; 80061; 83036; 84484; 85025; 93005; 97110; 97116; 97163; 97530; G0378

== ENCOUNTER 2023-08-21 14:44 | Emergency (ER) | payer OTHER, MEDICAID ==
[~2023-08-21] VITALS: Ht 167.6 cm; Wt 120.0 kg
[~2023-08-21 14:44] MED LIST changes: +CARV25TA55 PO; +CHOL20007 PO; -CLON0.2T PO; -CYCL-611 PO; +FERR325T24 PO; +FLUO-125 PO; -FLUO20CA90 PO; -HYDR-4072 PO; +HYDR-4297 PO; +HYDR-4798 PO; -LEVO500T31 PO; -LISI40TA16 PO; -METR500T PO; +PREG75CA PO; -QUET300T14 PO; +QUET300T24 PO; -TIZA-142 PO; +TIZA4CAP PO
[2023-08-21 14:59] VITALS: BP 216/110; RESP 16; O2SAT 99
[2023-08-21 15:32] LABS: Basophils # (auto) 0.1 10 ^3/uL (0-0.2); Lymphocytes % (auto) 37.1 % (10.0-50.0); Monocytes # (auto) 0.5 10 ^3/uL (0-1.3); White Blood Cell 5.5 10^3/uL (4.4-10.8)
[2023-08-21 15:33] LABS: Basophils % (auto) 0.9 % (0.0-2.0); Eosinophils # (auto) 0.1 10 ^3/uL (0-0.8); Eosinophils % (auto) 2.4 % (0.0-7.0); Hematocrit 31.5 % (36.0-46.0); Hemoglobin 10.4 g/dL (12.2-16.2); Mean Corpuscular Hemoglobin 27.2 pg (28.0-32.0); Mean Corpuscular Hgb Conc. 33.1 g/dL (32.0-36.0); Mean Corpuscular Volume 82.4 fL (80.0-100.0); Neutrophils # (auto) 2.8 10 ^3/uL (1.6-8.6); Neutrophils % (auto) 50.6 % (37.0-80.0); Nucleated Red Blood Cells % 0.2 %; Red Blood Cells 3.82 10^6/uL (4.0-5.20); Red Cell Distribution Width 15.9 % (11.8-14.3)
[2023-08-21 15:52] LABS: Alanine Aminotransferase 11 U/L (7-40); Albumin 4.2 g/dL (3.2-4.8); Alkaline Phosphatase 116 U/L (46-116); Anion Gap 5 (5-15); Aspartate Aminotransferase 16 U/L (13-40); BUN/Creatinine Ratio 13.7 (10.0-20.0); Blood Urea Nitrogen 18 mg/dL (9-23); Calcium 9.5 mg/dL (8.7-10.4); Carbon Dioxide 30 mmol/L (20-30); Chloride 103 mmol/L (98-107); Glucose 92 mg/dL (74-106); Magnesium 1.5 mg/dL (1.6-2.6); Potassium 3.7 mmol/L (3.5-5.1); Sodium 138 mmol/L (136-145)
[2023-08-21 15:53] LABS: Bilirubin, Total 0.4 mg/dL (0.2-1.0); Total Protein 7.8 g/dL (5.7-8.2)
[2023-08-21 17:18] VITALS: PULSE 73
== END 2023-08-21 19:13 | disposition left against medical advice (07) ==
LOC: ER 14:44 → EDBD 14:44 → EDUNIT# 14:44 → ER 19:13
DX: I10 Essential (primary) hypertension (principal); D63.8 Anemia in other chronic diseases classified elsewhere; E11.21 Type 2 diabetes mellitus with diabetic nephropathy; E83.42 Hypomagnesemia; E66.01 Morbid (severe) obesity due to excess calories; F32.9 Major depressive disorder, single episode, unspecified; Z68.41 Body mass index [BMI] 40.0-44.9, adult; Z90.5 Acquired absence of kidney; Z85.9 Personal history of malignant neoplasm, unspecified; Z98.890 Other specified postprocedural states; Z88.8 Allergy status to other drugs, medicaments and biological substances; Z79.899 Other long term (current) drug therapy
CPT/HCPCS: 36415; 71045; 80053; 83735; 84484; 85025; 93005

== ENCOUNTER 2023-09-26 06:32 | Inpatient (IN) | payer OTHER, MEDICAID ==
[~2023-09-26] VITALS: Ht 162.6 cm; Wt 114.0 kg
[~2023-09-26 06:32] MED LIST changes: +CLON0.2T PO; +HYD25TP PR; +LISI40TA16 PO; +NIFE1TAB30 PO; -POTA-180 PO; +PREG-110 PO; -PREG75CA PO; +PREN-96 PO; +ceFAZolin 1GM/50ML 50 ML IV ONE
[2023-09-26] MEDS ORDERED: TRANEXAMIC ACID 20 ML ONE (06:44)
[2023-09-26] MEDS ORDERED: PROPOFOL 10 MG/ML 20 ML IV ONE ×2 (07:11→07:32)
[2023-09-26] MEDS ORDERED: fentaNYL CITRATE 100 MCG/2 ML VL ONE ×2 (07:11→09:26)
[2023-09-26] MEDS ORDERED: LIDOCAINE 2% JELLY 11ml (GLYDO) ONE (07:25)
[2023-09-26] MEDS ORDERED: HYDROmorphone HCL 2 MG/ML VL/or syr ONE (07:31)
[2023-09-26] MEDS ORDERED: MIDAZOLAM HCL 2MG/2ML 2ml VIAL (1mg/ml) ONE ×2 (07:31→09:31)
[2023-09-26] MEDS ORDERED: LIDOCAINE 2% (LOCAL ANESTH.) PF 5ml SDV ONE (07:32)
[2023-09-26] MEDS ORDERED: PHENYLEPHRINE HCL 10 MG/ML VL ONE (07:32)
[2023-09-26] MEDS ORDERED: DexAMETHasone SOD PHOS 10MG/1ML VIAL INJ ONE (07:32)
[2023-09-26] MEDS ORDERED: ONDANSETRON HCL 4 MG/2 ML VIAL ONE (07:32)
[2023-09-26] MEDS ORDERED: ePHEDrine SULFATE 50 MG/ML AMP ONE (07:33)
[2023-09-26] MEDS ORDERED: GLYCOPYRROLATE 0.2 MG/ML 1ML VIAL ONE (07:34)
[2023-09-26] MEDS ORDERED: ROCURONIUM 10MG/ML 10ML VIAL IV ONE (07:34)
[2023-09-26] MEDS ORDERED: SUGAMMADEX 200mg/2ml Vial (100MG/ML) IV ONE (08:36)
[2023-09-26] MEDS ORDERED: PROPOFOL 200 ML IV ONE (09:25)
[2023-09-26] MEDS ORDERED: ceFAZolin 1GM/50ML 50 ML IV SCH (10:15)
[2023-09-26] MEDS ORDERED: MORPHINE SULFATE INJ 2 MG/ml SYRG IV PRN ×2 (10:15)
[2023-09-26] MEDS ORDERED: ACETAMINOPHEN 325 MG TAB PO PRN (10:15)
[2023-09-26] MEDS ORDERED: ONDANSETRON HCL 4 MG/2 ML VIAL IV PRN ×2 (10:15→12:00)
[2023-09-26] MEDS ORDERED: NITROGLYCERIN 0.4 MG SL TAB SL PRN (10:15)
[2023-09-26] MEDS ORDERED: BACITRACIN TOP OINT 1 UD PKG TOP ONE (10:27)
[2023-09-26 11:20] VITALS: O2SAT 96
[2023-09-26] MEDS ORDERED: HYDROmorphone HCL 2 MG/ML VL/or syr IV PRN ×3 (12:00→12:15)
[2023-09-26] MEDS ORDERED: ACCU-CHEK COMFORT CURVE STRIP VI ONE (12:15)
[2023-09-26] MEDS: CYCLOBENZAPRINE HCL 10 MG TAB PO SCH ×3 (14:57→21:34)
[2023-09-26 16:55] VITALS: BP 135/95; PULSE 75; RESP 19; TEMP 98.7; O2SAT 98
[2023-09-26] MEDS: ceFAZolin 1GM/50ML 50 ML IV SCH (18:33)
[2023-09-26] MEDS: D5W/SOD CHLO 0.9% 1,000 ML IV SCH ×2 (18:40→21:27)
[2023-09-26 18:54] VITALS: BP 135/95; PULSE 75; RESP 19; TEMP 98.7; O2SAT 98
[2023-09-26 20:00] VITALS: PULSE 69
[2023-09-26] MEDS: DOCUSATE SOD 100 MG CAP PO SCH (21:34)
[2023-09-26 22:00] VITALS: BP 166/119; PULSE 76; RESP 18; TEMP 97.5; O2SAT 91
[2023-09-26 22:15] VITALS: BP 150/90
[2023-09-26] MEDS: HYDROcodone-ACET 10/325MG TAB PO PRN (23:26)
[2023-09-27] MEDS ORDERED: ceFAZolin 1GM/50ML 50 ML IV ONE (01:02)
[2023-09-27] MEDS: ceFAZolin 1GM/50ML 50 ML IV SCH (01:03)
[2023-09-27 05:00] VITALS: BP 154/96; PULSE 63; RESP 16; TEMP 97.7; O2SAT 97
[2023-09-27] MEDS ORDERED: POTA-220 PO (06:04)
[2023-09-27] MEDS: CYCLOBENZAPRINE HCL 10 MG TAB PO SCH ×2 (06:31→13:31)
[2023-09-27] MEDS: D5W/SOD CHLO 0.9% 1,000 ML IV SCH ×2 (06:31→18:52)
[2023-09-27 08:00] VITALS: PULSE 60
[2023-09-27 08:10] VITALS: PULSE 64; RESP 16; O2SAT 95
[2023-09-27 09:17] VITALS: BP 149/95; PULSE 64; RESP 16; TEMP 98.1; O2SAT 95
[2023-09-27] MEDS: DOCUSATE SOD 100 MG CAP PO SCH (09:21)
[2023-09-27 12:10] VITALS: BP 177/91; PULSE 60; RESP 16; TEMP 98; O2SAT 100
[2023-09-27] MEDS ORDERED: PANT40TA57 PO (14:30)
[2023-09-27] MEDS ORDERED: PREG-108 PO (14:32)
[2023-09-27 16:43] VITALS: BP 156/98; PULSE 67; RESP 18; TEMP 98; O2SAT 95
[2023-09-27] MEDS: HYDROcodone-ACET 10/325MG TAB PO PRN (18:39)
== END 2023-09-27 20:45 | disposition home health service (06) | DRG 473 ==
LOC: SUR 06:32 → TELE 10:12 → TELE-CENTR 15:42
PROVIDERS: ADMIT Orthopaedic Surgery; ATTEND Orthopaedic Surgery
PROC: 0RB30ZZ Excision of Cervical Vertebral Disc, Open Approach (ICD-10-PCS; 2023-09-26)
PROC: 01N10ZZ Release Cervical Nerve, Open Approach (ICD-10-PCS; 2023-09-26)
PROC: 00NW0ZZ Release Cervical Spinal Cord, Open Approach (ICD-10-PCS; 2023-09-26)
PROC: 4A11X4G Monitoring of Peripheral Nervous Electrical Activity, Intraoperative, External Approach (ICD-10-PCS; 2023-09-26)
PROC: 0RG10A0 Fusion of Cervical Vertebral Joint with Interbody Fusion Device, Anterior Approach, Anterior Column, Open Approach (ICD-10-PCS; principal; 2023-09-26 08:05)
DX: M48.02 Spinal stenosis, cervical region (principal); E11.9 Type 2 diabetes mellitus without complications; F32.A Depression, unspecified; F41.9 Anxiety disorder, unspecified; I10 Essential (primary) hypertension; M54.12 Radiculopathy, cervical region; Z80.1 Family history of malignant neoplasm of trachea, bronchus and lung; Z82.3 Family history of stroke; Z82.49 Family history of ischemic heart disease and other diseases of the circulatory system; Z83.3 Family history of diabetes mellitus; Z90.5 Acquired absence of kidney
CPT/HCPCS: 72040; 76000; 82962; 86850; 86900; 86901; 97116; 97163; 97530; G0378; J1100; J2001; J2250; J2405; J2704; J7042

== ENCOUNTER 2024-12-29 08:38 | Inpatient (IN) | payer OTHER, MEDICAID ==
[~2024-12-29] VITALS: Ht 160 cm; Wt 118.3 kg
[~2024-12-29 08:38] MED LIST changes: +FINE10TA PO; +FURO20TA3 PO; -HYDR-4297 PO; -HYDR-4798 PO; +HYDR-4924 PO; -LISI40TA16 PO; +ONDA-155 PO; +OXYC-963 PO; -PANT40TA2 PO; +POTA-220 PO; -PREG-110 PO; +PREG75CA90 PO; -PREN-96 PO; -QUET300T24 PO; -ceFAZolin 1GM/50ML 50 ML IV ONE
[2024-12-29] MEDS: LIDOCAINE W/ EPINEPHRINE 1% 20ML VIAL ONE ×2 (09:24→11:43)
--- NOTE | 2024-12-29 09:58 | DVHHP2 ---
"Admitting Diagnosis: lumbar spinal stenosis with severe neurogenic claudication History of Present Illness Home Meds Reported Medications Ondansetron HCl (Ondansetron) 4 Mg Tab, 4 MG PO TID, TAB 12/28/24 Pregabalin (Pregabalin) 75 Mg Cap, 75 MG PO BID, CAP 12/28/24 Finerenone (Kerendia) 10 Mg Tab, 10 MG PO DAILY, TAB 12/28/24 Furosemide (Furosemide) 20 Mg Tab, 20 MG PO BID, TAB 12/28/24 Hydroxyzine HCl (Hydroxyzine Hydrochloride) 25 Mg Tab, 25 MG PO DAILY, TAB 12/28/24 Oxycodone W/ Acetaminophen (Oxycodone/Acetaminophen 10-300 mg) 1 Tab Tab, 1 TAB PO QID, TAB 12/28/24 Potassium Chloride (Klor-Con M20) 20 Meq Tab, 20 MEQ PO, TAB 09/27/23 Hydrocortone (Hydrocortisone 2.5%) 1 Applic Ap, 1 APPLIC ID PRN, APPLIC 09/24/23 Clonidine Hydrochloride (Clonidine Hcl) 0.2 Mg Tab, 0.2 MG PO TID, TAB Take if SP >190 or DP >90 09/24/23 Nifedipine (Nifedipine Er) 60 Mg Tab, 60 MG PO DAILY, TAB 09/24/23 Ferrous Sulfate (Ferrous Sulfate) 325 Mg Tab, 325 MG PO DAILY for 30 Days, MG 04/17/23 Cholecalciferol (VITAMIN D3) 2,000 Unit Tab, 1 TAB PO DAILY, #30 TAB 5 Refills 04/17/23 Carvedilol (Carvedilol) 25 Mg Tab, 25 MG PO Q12HR for 30 Days, MG 04/17/23 Tizanidine Hydrochloride (Zanaflex) 4 Mg Cap, 1 CAP PO TID, #90 CAP 04/17/23 Fluoxetine Hcl (Fluoxetine Hcl) 20 Mg Cap, 20 MG PO DAILY for 30 Days, MG 04/17/23 Chlorthalidone (Chlorthalidone) 50 Mg Tab, 1 TAB PO QAM 06/02/21 Discontinued Reported Medications Pregabalin (Pregabalin) 50 Mg Cap, 50 MG PO DAILY, CAP Take 1 tablet by mouth in the morning, 2 tablets by mouth in the evening 09/27/23 Vit W/ Ferrous Fumara ( One Daily) Daily Tab, 1 TAB PO DAILY, #30 TAB 11 Refills 09/24/23 Lisinopril (Lisinopril) 40 Mg Tab, 40 MG PO DAILY, TAB 09/24/23 Hydralazine Hcl (Hydralazine Hcl) 50 Mg Tab, 50 MG PO TID for 30 Days, MG 04/17/23 Hydrocodone-Acetaminophen (Hydrocodone Bitartrate/AC 10-325 mg) 1 Tab Tab, 1 TAB PO Q6HPRN, TAB 04/17/23 Timing/Duration of Back Pain: Getting worse, Changing over time Quality of Back Pain: Aching, Burning, Cramping, Dullness, Fullness Back Pain Location: Lumbar spine Back Pain Radiation: Lower legs Associated Symptoms of Back Pa: Muscle spasms, Numbness in legs, Numbness in feet, Tingling in legs, Sensory loss, Motor loss Past Medical History Patient Family History: Cancer G8 MOTHER, G8 FATHER Diabetes mellitus G8 MOTHER, G8 FATHER FH: aneurysm G8 MOTHER, , Onset:Unknown FH: kidney failure G8 MOTHER, , Onset:Unknown G8 FATHER, Onset:Unknown FH: lung cancer G8 MOTHER, AUNTIE Family history: Cardiovascular disease G8 MOTHER, Family history: Diabetes mellitus G8 MOTHER, G8 FATHER Family history: Hypertension G8 MOTHER, G8 FATHER G8 BROTHER Stroke G8 MOTHER, H&P Exam Vital Signs Vital Signs Date Time Temp Pulse Resp B/P (MAP) Pulse Ox O2 Delivery O2 Flow Rate FiO2 12/29/24 08:52 97.0 63 20 106/61 (76) 99 97.0 General Appeara: Well developed, Well nourished, Normal Appearance Head Exam: Normal inspection Neck Exam: Normal inspection, Non-tender, Normal alignment Eye Exam: bilateral eye Normal inspection, bilateral eye PERRL, bilateral eye EOMI Ear Exam: bilateral ear Auricle normal, bilateral ear Canal normal, bilateral ear TM normal Nasal Exam: Normal inspection Mouth: Normal Inspection Pulmonary/Respiratory: Normal inspection, Normal breath sounds, Chest non- tender, Lungs clear Cardiovascular/Chest: Normal inspection Abdominal Exam: Normal bowel sounds, Soft, No tenderness, No hepatospenomegaly, No masses Rectal Exam: Deferred Back Exam: Decreased range of motion, Muscle spasm Pelvic Exam: Not done Male Genital Exam: Not done Shoulder Exam: Normal inspection, Non-tender, Normal ROM Elbow/Forearm Exam: Normal inspection, Non-tender, Normal ROM Wrist Exam: Normal inspection, Non-tender, Normal ROM Hand Exam: Normal inspection, Non-tender, Normal ROM Hip exam: Normal inspection, Non-tender, Normal range of motion Knees: bilateral knee non-tender, bilateral knee normal inspection, bilateral knee normal range of motion, bilateral knee no evidence of injury Ankle Exam: bilateral ankle Normal inspection, bilateral ankle Non-tender, bilateral ankle Normal range of motion, bilateral ankle No evidence of injury Foot: bilateral foot non-tender, bilateral foot normal inspection, bilateral foot normal range of motion, bilateral foot no evidence of injury Tendon/ Neuro: Motor deficit, Sensory deficit PIN CLEANER Exam: Normal hearing, Normal speech, PERRL Motor/Sensory: Weak motor strength RLE, Weak motor strength LLE Deep Tendon Ref: All intact Neuro/Mental St: Alert, Oriented Appearance: Appropriate appearance, Appropriate insight Eye contact/ Speech: Cooperative, Good eye contact, Normal speech Coordination/Gait: Abnormal gait Skin Exam: Normal inspection, Normal color, Warm/dry Lymphatic: Normal inspection Labs/Xrays Patient Details Exam Details EWELINA CROWELL MR LUMBAR SPINE WO Date of Gender Exam Date FEMALE 04/02/2026 [id number] [facility] Rec # Ordering Provider Interpreting Provider [id number] DUONG HANKINS DANIELLE PROCEDURE: MRI lumbar spine without contrast. INDICATION: R20.0 COMPARISON: None TECHNIQUE: MRI lumbar spine without intravenous contrast utilizing multiplanar, multisequence technique. FINDINGS: The alignment of the lumbar spine vertebral bodies is preserved. Bone marrow signal is homogenous and unremarkable. The vertebral body heights are maintained. The intervertebral disc spaces are maintained in height and signal characteristics. The conus medullaris is normal in signal characteristics and terminates at the T12-L1 level. Paraspinal muscles are unremarkable. At the T12-L1 level, there is no evidence of central spinal canal or neuroforaminal stenosis. At the L1-L2 level, there is no evidence of central spinal canal or neuroforaminal stenosis. At the L2-L3 level, there is no evidence of central spinal canal stenosis. There is facet and ligamentum flavum hypertrophy which narrows the lateral recesses. There is mild bilateral neural foraminal stenosis. At the L3-L4 level, there is a broad-based posterior disc bulge, ligamentum and facet hypertrophy. There is severe narrowing of the lateral recesses. There is no significant canal stenosis. There is moderate right and mild- to-moderate left neural foraminal stenosis. At the L4-L5 level, there is no significant canal stenosis. There is narrowing of the lateral recesses due to facet hypertrophy. There is mild right and moderate left neural foraminal stenosis. At the L5-S1 level, there is no evidence of central spinal canal or neuroforaminal stenosis. Other: None. IMPRESSION: [facility] [id number] [address] , [address] [place] [address] | Confidential information intended for patient chart only Page 2 of 2 1. Mild multilevel lower lumbar spondylosis as described at each level above. Assessment/Plan Primary Diagnosis lumbar spinal stenosis with incapacitating radiculopathy Plan Admit for elective lumbar decompression and fusion Plan discussed with: Patient ESTEBAN WARE MD Dec 29, 2024 09:58"
[2024-12-29] MEDS: levoFLOXacin 500MG 100 ML IV ONE (11:00)
[2024-12-29] MEDS: ceFAZolin 2 GM/D5W100ml 100 ML IV ONE (11:08)
[2024-12-29] MEDS: TRANEXAMIC ACID 20 ML ONE (11:10)
[2024-12-29] MEDS ORDERED: SUGAMMADEX 200mg/2ml Vial (100MG/ML) IV ONE (13:02)
[2024-12-29] MEDS ORDERED: fentaNYL CITRATE 100 MCG/2 ML VL ONE (13:20)
--- NOTE | 2024-12-29 14:10 | DVHOP2 ---
Operative Report - 2 Report Details Date: 12/29/24 Preop Diagnosis: lumbar spinal stenosis Postop Diagnosis: lumbar spinal stenosis Surgeon: Ricardo Lewis MD Cooker Sulfite: Tamiko Funk NP Anesthesiologist: Dr. Flores Anesthesia: General Consent: The patient was informed of the risks and benefits of the procedure. These include but are not limited to complications of anesthesia, postoperative infection, incomplete relief of symptoms, recurrence of symptoms, damage to blood vessels, nerves and tendons, deep venous thrombosis, pulmonary embolism and possible need for repeat surgery in the future. Name of Procedure Performed see detailed note Procedure Details Procedure Details: Pre-op Diagnosis: Lumbar Degenerative Disk Disease and Lumbar Spinal Stenosis causing Incapacitating back pain, radiculopathy and progressive neurologic deficit Post-op Diagnosis: Lumbar Degenerative Disk Disease and Lumbar Spinal Stenosis causing Incapacitating back pain, radiculopathy and progressive neurologic deficit Procedure: Lumbar 5 laminectomy with Lumbar 5 foraminotomies and facetectomies to decompress central canal and Lumbar 5 nerve roots Lumbar 4 laminectomy with Lumbar 4 foraminotomies and facetectomies to decompress central canal and Lumbar 4 nerve roots Lumbar 3 laminectomy with Lumbar 3 foraminotomies and facetectomies to decompress central canal and Lumbar 4 nerve roots Lumbar 3 to 4 posterior spinal interbody fusion with PEEK cage Lumbar 4 to 5 posterior spinal interbody fusion with PEEK cage Lumbar 3 to 5 posterior spinal instrumentation with pedicle screws Local Bone Autograft For Fusion Allograft Bone Substitute (Bacterin) to augment Fusion Use of Demineralized Bone Matrix to Augment Fusion Microscope For Microdissection Surgeon: Ricardo Lewis MD Assist: CHRIS Chen Anesthesia: General Fluids and EBL: See anesthesia note Patient was seen in the Pre Anesthesia Care Unit (PACU) and the operative site was initialed by me. All questions were answered to the patients satisfaction and chart reviewed. The patient was taken to the operative room where pre- operative antibiotics were given 30 minutes prior to incision. General anesthesia was induced and neuro-monitoring leads placed. Hanley catheter was placed. The patient was turned prone onto the [facility] spinal table. While positioning, I made sure that the belly was free to allow proper expansion of the lungs. The hips were extended and all bony prominences padded. The shoulders were abducted 80 degree and the elbows flexed 100 degrees with no tension on the brachial plexus. I check the foot arterial pulses and they were palpable. The patient was prepped and draped and time out was taken at this time per usual protocol. At this time, the C-arm fluoroscope was brought in and was used to lisy the incision borders proximally and distally. Using a Number 10 Blade, an incision was made extending it proximally and distally per C arm lisy from the posterior spinous process of lumbar 4,5 down to the lumbo-dorsal fascia. All bleeding was controlled with electrocautery. Self-retaining retractors were placed. Electrocautery was then used to take down the lumbo-dorsal fascia, to free the muscle off the bone bilaterally. A Prema retractor was placed over the posterior spinous process proximally and a lateral C-arm fluoroscope image was taken to insure we were at the correct level. Next, using bovie electro cautery, The deep fascia laterally to the facet joints was removed to expose the transverse processes of lumbar 3, 4 and 5 while taking ca re to avoid injuring the facet capsule at the proximal end of the incision. Next, the microscope was bought in for visualization and using a Luxell rongeur, the posterior spinous process of lumbar 3 and 4 and 5 bone were removed and the bone was saved for use as local autograft. I used alternating Kerison 2 mm and 3 mm rongeurs to perform central laminectomies lumbar 5 and 4 and 3 to decompress the central canal. Next using alternating Kerison 2mm and 3 mm rongeurs, the superior articular facets of lumbar 3, 4 and 5 were removed bilaterally to decompress the lateral recess (facetectomies) and then extended proximally to decompress the foramen bilaterally (foraminotomies). I used a ball tipped nerve probed to insure that the respective nerve roots were able to be mobilized 5mm in each direction were unimpeded in the lateral recess and foramen. Next I carefully inspected the dura to make sure no durotomy was visible and it was not. I retracted the right lumbar 5 nerve medially and used increasing size fran until the proper size prepared and then inserted a [id number] PEEK cage in to the disc space at L4/5 using C arm fluoroscopy. I repeated this process at the L3/4 level. At this level it was a [id number] PEEK cage. I covered the exposed dura with gelfoam soaked in thrombin and the microscope was wheeled away from the operative filed. The C-arm fluoroscope was brought in and perfect AP views of the lumbar 4 and 5 pedicles were obtained. I placed bilateral pedicle screws at these levels by: using a Lenke awl to make a airplane pilot photogrammetry hole, then a ball tip robe to make sure there was no pedicle breach, then a tap to prepare the track and a 6.5 mm diameter 45 mm length pedicle screw was placed bilaterally. This step to place bilateral pedicle screws was repeated up to the lumbar 3, 4 and 5 level. Next, the c-arm fluoroscope took an AP and lateral x-ray to ensure proper placement of the pedicle screws. Next, the neuro-stimulation probe was placed over the tip of each screw and each screw stimulated only after a current greater than 10 mA was delivered to the screw. Next , I took a Midas Jin Drill to decorticate the transverse process which were exposed and local bone graft, Bacterin allograft bone substitute and Demineralized bone matrix were placed along the inter transverse process intervals bilaterally (the fusion bed). Next a curved miko sized to fit the pedicle screw interval was placed and secured to each pedicle screw using set screws, The set screws were tightened using a torque screwdriver (set to 10 N*M torque) to secure the miko to the pedicle screws bilaterally. Final AP and lateral C arm fluoroscopic films were taken at this time. Next a 10 Khmer diameter Hemovac drain was laced deep to the lumbo- dorsal fascia. The lumbo-dorsal fascia was closed with interrupted 0-Vicry sutures. The subcutaneous tissue was closed with interrupted 2-0 Vicryl sutures. The skin was closed with running 2-0 nylon suture. Sterile dressings were place. The pt. was turned supine onto the stretcher, extubated and taken to the recovery room in stable condition. At the end of the case a TLSO brace was placed as well as an external bone stimulator. Condition Stable Disposition Still a Patient RICARDO LEWIS MD Dec 29, 2024 14:10
[2024-12-29] MEDS ORDERED: ACETAMINOPHEN 325 MG TAB PO PRN (14:15)
[2024-12-29] MEDS: D5W/SOD CHLO 0.9% 1,000 ML IV SCH (14:15)
[2024-12-29] MEDS ORDERED: ONDANSETRON HCL 4 MG/2 ML VIAL IV PRN (14:15)
[2024-12-29] MEDS ORDERED: NITROGLYCERIN 0.4 MG SL TAB SL PRN (14:15)
[2024-12-29] MEDS ORDERED: MORPHINE SULFATE INJ 2 MG/ml SYRG IV PRN (14:15)
[2024-12-29 15:08] VITALS: PULSE 70; RESP 13; O2SAT 100
--- NOTE | 2024-12-29 15:22 | DVH ---
CLINICAL INDICATION: LUMBAR DISCECTOMY/FUSION TECHNIQUE: 10 radiographic views of the surgery in the lumbar spine were obtained. Comparison: None FINDINGS/IMPRESSION: Cumulative dose: 111.5 mGy Fluoro time 167.5 seconds
--- NOTE | 2024-12-29 15:25 | DVH ---
C-ARM FLUOROSCOPY: PROCEDURE: Lumbar discectomy FLUOROSCOPY TIME: 167.5 DAP: 111.5 mgy FINDINGS: Spot intraoperative C arm radiographs demonstrating . IMPRESSION: 1. Please refer to surgical report for detailed findings.
[2024-12-29] MEDS ORDERED: ceFAZolin 1GM/50ML 50 ML IV SCH (16:00)
[2024-12-29] MEDS: HYDROmorphone HCL 2 MG/ML VL/or syr IV PRN (16:01)
[2024-12-29 16:53] VITALS: PULSE 66; RESP 14; O2SAT 98
[2024-12-29] MEDS: MORPHINE SULFATE INJ 2 MG/ml SYRG IV PRN (19:03)
[2024-12-29] MEDS: CYCLOBENZAPRINE HCL 10 MG TAB PO SCH (19:52)
[2024-12-29] MEDS: DOCUSATE SOD 100 MG CAP PO SCH (19:52)
[2024-12-29 20:00] VITALS: PULSE 59; PULSE 82; RESP 18; O2SAT 97
[2024-12-29 21:00] VITALS: BP 143/88; PULSE 59; RESP 18; TEMP 97.5; O2SAT 97
[2024-12-29] MEDS: ceFAZolin 1GM/50ML 50 ML IV SCH (21:40)
[2024-12-30 08:00] VITALS: PULSE 88; PULSE 93; RESP 20; O2SAT 98
[2024-12-30 09:00] VITALS: BP 137/81; PULSE 93; RESP 20; TEMP 98.5; O2SAT 98
[2024-12-30] MEDS: HYDROcodone-ACET 10/325MG TAB PO PRN (11:09)
--- NOTE | 2024-12-30 12:47 | DVHPN2 ---
Progress Note - Surgical Date Seen: Dec 30, 2024 Post op day Post op day: 1 Subjective Patient reports: No new complaints, Feels better Review of Systems: MSK:Normal (Patient experiencing expected postoperative pain, patient states that the discomfort to her right leg has resolved however she is experiencing some nerve pain to her left leg, slight hypersensitivity which is expected.), NEURO:Normal (improved corporate development manager stremgth bilaterally, neck pain improved, no headaches) Objective Vital signs Vital Sign Date Time Temp Pulse Resp B/P (MAP) Pulse Ox O2 Delivery O2 Flow Rate FiO2 12/30/24 09:00 98.5 93 20 137/81 (99) 98 98.5 12/30/24 08:00 Room Air* 0 21 21 Total Intake and Output 12/29/24 12/29/24 12/30/24 15:00 23:00 07:00 Intake Total 320 ml 300 ml 175 ml Output Total 300 ml 10 ml Balance 20 ml 290 ml 175 ml Medications Current Medications Medications Dose Ordered Sig/Mile Route Start Time Stop Time Status Last Admin Dose Admin Dextrose/Sodium Chloride 1,000 ml @ 100 mls/hr Q10H IV 12/29/24 14:15 12/30/24 10:31 100 MLS/HR Ondansetron HCl 4 mg Q4HP PRN IV 12/29/24 14:15 Acetaminophen 650 mg Q6HP PRN PO 12/29/24 14:15 Acetaminophen/ Hydrocodone Bitart 1 tab Q6HP PRN PO 12/29/24 14:15 12/30/24 11:09 1 TAB Morphine Sulfate 1 mg Q4HP PRN IV 12/29/24 14:15 12/30/24 00:22 1 MG Cyclobenzaprine HCl 10 mg TID PO 12/29/24 22:00 12/30/24 05:44 10 MG Docusate Sodium 100 mg BID PO 12/29/24 22:00 12/30/24 10:33 100 MG Nitroglycerin 0.4 mg Q5MINP PRN SL 12/29/24 14:15 Morphine Sulfate 2 mg Q30M PRN IV 12/29/24 14:15 Cefazolin Sodium 50 ml @ 100 mls/hr Q8H IV 12/29/24 21:00 12/31/24 13:29 12/30/24 05:42 100 MLS/HR Examination: GENERAL:Normal, HEENT:Normal, NECK:Normal, LUNGS:Normal, CVS:Normal, ABDOMEN:Normal, MSK:Normal (improved from preop symptoms), SKIN:Abnormal (some slight swelling and bruising to surgical sitem wound edges well approximated. tender to touch) Problem List/Assessment/Plan Problems: (1) Muscle spasms of neck (2) Postoperative pain after spinal surgery (3) Cervical stenosis of spinal canal Assessment and Plan Patient states that her preoperative symptoms to her right leg have resolved, her pain has improved, she is now experiencing some numbness and discomfort to her pain Patient is progressing well Mobility is improving Patient is able to get herself up to the bedside commode and returned to bed independently Patient is successfully working with physical therapy, tolerating a diet Patient is progressing to discharge Drain output documented is 310 over the past 24 hours, unfortunately the staff did not separate the drainage output into drain 1 &2, staff educated. We will keep drains in another 24 hours and reassess tomorrow POD # 1 Dx: Lumbar stenosis with neurogenic claudication, postoperative pain, muscle spasms -Disposition: -Pending -Discharge RX: Pending -Follow up appointment[place] [id number] [facility] [address] [place] [phone] -Pain: - IV pain meds post op day 1, with PO supplementation, goal is to progress weaning off IV medications and control pain with PO only. morphine 1mg q 4 hours (PAIN 7-10) - P.O. analgesics:Tylenol 650MG (PAIN 1-3) [place] 10/325 mg (PAIN 4-6) - Muscle relaxers scheduled administration. This is a beneficial medications for the incisional pain as it is mostly related to muscle spasms. Flexeril 10 mg TID - Cepacol throat lozenges as needed for sore throat -Antibiotics Operative recommendations: -Postoperative dose:-Post operative antibiotics cefazolin 1 g IV piggyback every 8 hours x 48 hours total of 6 doses -DVT PPX: -Hold all chemical DVT/ blood thinners for 14 days postoperatively -use mechanical DVT PPX such as SCD's, ambulation -Activity: -Pending PT evaluation and patients progression -Sit at side of bed for meals -Goal: Ambulate independently and safely (may use assistive devices if needed) -Medical Therapy goals: -Afebrile- Patient may develop a expected post operative fever by day 2-3, this may not be accompanied with a elevation in WBC. if fever develops: Acetaminophen for fever. Albuterol nebulizer Tx every 12 hours for 24 hours to facilitate adequate lung expansion and prevent development of atelectasis. -Euglycemic: bloods sugars under 130mmol/L for optimal healing -Normotensive: Avoid events of hypertension. This helps to keep post operative healing intact and avoids destabilization of beneficial hemostatic coagulation. -Lumbar: -If patient is comfortable encouraged the patient to lay on their side to facilitate wound healing -Drains: -Hemovac drains: These will be to full compression unless otherwise ordered. Please record and document output AND characteristic of fluid present independently EVERY 6 hours more often as needed. if there in no output indicate this by documenting 0ml. If output is greater than 100 ml in one hour of amanda blood call provider. These drains will be removed once the drainage is at a acceptable level (generally less than 100ml in 24 hours) -Heidy dressing: This will stay in place and will be removed at the patients follow up visit. Nursing is to assess the seal and power source. The seal should be intact and the power source should have a green flashing light indicating it is functioning well. Batteries can last up to 14 days. If a leak develops the dressing edges can be reinforced with a Tegaderm dressing to reestablish intact seal. The Heidy dressing is NOT a wound vac. This does not get changed, it does not need home health management. -Record output independently, drain 1. Is a deep drain and drain 2. Is a superficial drain. Wound drainage is described by type, color, amount, and odor. Drainage can be 1 Serous: Clear and thin, may be present in healing healthy wound. 2 Serosanguineous containing blood may also be present and healthy healing wound 3. Sanguinous primarily blood 4. Purulent this is thick, white, and pus like. It may be indicated to give of a infection and should constitute a call to the provider immediately with the plan that the sample should be cultured. -Dressings Take care not to disrupt the HEIDY dressing seal. If there is a break in the seal it can be trouble shot with a Tegaderm dressing. -Dressing to Hemovac drains may be changed once the drains have been removed by the provider. -Bowel management: -Colace 100mg bid -Diet: -Clear liquid diet and advance as patient tolerates within dietary limitations ( example: diabetic, Cardiac) -Incentive Spirometer: -10 x hour while awake, RN please educate and observe repeat demonstration, have IS at bedside POD #1 -X-rays: - none indicated at this time -Consults: -Physical Therapy evaluation, treatment recommendations, and discharge recommendations Call with questions Angelica Funk ACNP- Orthopaedic Spine Surgery nurse practitioner For Dr Robbie Lewis Patient was examined, chart reviewed, labs evaluated, and diagnostic studies and findings analyzed. Case was discussed with Dr. Ricardo Lewis who formulated the plan of care. This medical document was created using an electronic medical record system with [employer] dictation system. Although this document has been carefully reviewed, there might still be some phonetic and typographical errors. These areas are purely typographical due to imperfections of the software programs, and do not reflect any compromise in the patient's medical care. My Orders My Orders Orders - JAQUELIN FUNK NP Procedure Category Date Status Time Drain Assessment GIOVANNA 12/30/24 In Process 10:42 Is At Bedside. GIOVANNA 12/30/24 In Process 10:39 Plan discussed with Plan discussed with: Patient, Other ([phone]) Visit Coding Surgery Date of Service if different f: Dec 30, 2024 Billing Provider: JAQUELIN FUNK NP Surgery Visit Codes: NOT BILLABLE JAQUELIN FUNK NP Dec 30, 2024 12:47
[2024-12-30 13:00] VITALS: BP 122/71; PULSE 61; RESP 18; TEMP 98.3; O2SAT 98
[2024-12-30] MEDS: Tizanidine Hydrochloride (Zanaflex) 4mg PO SCH (14:00)
[2024-12-30 17:00] VITALS: BP 108/63; PULSE 59; RESP 18; TEMP 98.1; O2SAT 96
[2024-12-30 20:00] VITALS: PULSE 61; PULSE 65; RESP 20; O2SAT 91
[2024-12-30 21:00] VITALS: BP 129/70; PULSE 65; RESP 20; TEMP 97.1; O2SAT 91
[2024-12-30] MEDS ORDERED: FUROSEMIDE 20 MG TAB PO SCH (22:00)
[2024-12-30] MEDS: PREGABALIN CAPSULE 75 MG CAP PO SCH (22:52)
[2024-12-31] VITALS (8 sets, daily range): BP systolic 84–127; BP diastolic 41–79; PULSE 20–80; RESP 16–20; TEMP 97.9–98.9; O2SAT 89–100
[2024-12-31] MEDS: FUROSEMIDE 20 MG TAB PO SCH (06:00)
[2024-12-31] MEDS: cloNIDine HCL 0.1 MG TAB PO SCH (06:00)
[2024-12-31] MEDS: CHLORTHALIDONE 25 MG TAB PO SCH (07:00)
[2024-12-31] MEDS: CARVEDILOL 12.5 MG TAB PO SCH (08:00)
[2024-12-31] MEDS: POTASSIUM CHL 20 Meq TABLET PO SCH (09:21)
[2024-12-31] MEDS: FERROUS SULFATE 325mg EC TAB PO SCH (09:21)
[2024-12-31] MEDS: FLUoxetine HCL 20 MG CAP PO SCH (09:22)
[2024-12-31] MEDS: CHOLECALCIFEROL (VITD3) 1,000UNIT=25mCg TAB PO SCH (09:22)
[2024-12-31] MEDS: HYDROcodone-ACET 10/325MG TAB PO PRN (09:23)
[2024-12-31] MEDS: hydrOXYzine 25 MG TAB or CAP PO SCH (10:00)
[2024-12-31] MEDS: NIFEdipine ER 30 MG TAB PO SCH (10:00)
--- NOTE | 2024-12-31 11:27 | DVHPN2 ---
Progress Note - Surgical Date Seen: Dec 31, 2024 Post op day Post op day: 2 Subjective Patient reports: No new complaints, Feels better Review of Systems: MSK:Normal (patient progressing), NEURO:Normal (Patient experiencing expected postoperative pain, due to nerve decompression) Objective Vital signs Vital Sign Date Time Temp Pulse Resp B/P (MAP) Pulse Ox O2 Delivery O2 Flow Rate FiO2 12/31/24 10:00 99/46 12/31/24 08:52 98.0 20 16 96 98.0 12/31/24 08:00 Room Air* 0 21 Total Intake and Output 12/30/24 12/30/24 12/31/24 15:00 23:00 07:00 Intake Total 50 ml 690 ml 850 ml Output Total 300 ml 25 ml Balance -250 ml 665 ml 850 ml Medications Current Medications Medications Dose Ordered Sig/Mile Route Start Time Stop Time Status Last Admin Dose Admin Dextrose/Sodium Chloride 1,000 ml @ 100 mls/hr Q10H IV 12/29/24 14:15 12/31/24 06:25 100 MLS/HR Ondansetron HCl 4 mg Q4HP PRN IV 12/29/24 14:15 Acetaminophen 650 mg Q6HP PRN PO 12/29/24 14:15 Morphine Sulfate 1 mg Q4HP PRN IV 12/29/24 14:15 12/31/24 02:52 1 MG Cyclobenzaprine HCl 10 mg TID PO 12/29/24 22:00 12/31/24 06:25 10 MG Docusate Sodium 100 mg BID PO 12/29/24 22:00 12/31/24 09:21 100 MG Nitroglycerin 0.4 mg Q5MINP PRN SL 12/29/24 14:15 Morphine Sulfate 2 mg Q30M PRN IV 12/29/24 14:15 Cefazolin Sodium 50 ml @ 100 mls/hr Q8H IV 12/29/24 21:00 12/31/24 13:29 12/31/24 05:14 100 MLS/HR Fluoxetine HCl 20 mg DAILY PO 12/31/24 10:00 12/31/24 09:22 20 MG Potassium Chloride 20 meq DAILY PO 12/31/24 10:00 12/31/24 09:21 20 MEQ Pregabalin 75 mg BID PO 12/30/24 22:00 12/31/24 09:21 75 MG Carvedilol 25 mg BIDWM PO 12/31/24 08:00 Chlorthalidone 50 mg QAM PO 12/31/24 07:00 Cholecalciferol 2,000 unit DAILY PO 12/31/24 10:00 12/31/24 09:22 2,000 UNIT Clonidine HCl 0.2 mg TID PO 12/31/24 06:00 Ferrous Sulfate 325 mg DAILY PO 12/31/24 10:00 12/31/24 09:21 325 MG Patient Own Medication 10 mg DAILY PO 12/31/24 10:00 Hydroxyzine Pamoate 25 mg DAILY PO 12/31/24 10:00 Nifedipine 60 mg DAILY PO 12/31/24 10:00 Patient Own Medication 1 cap TID PO 12/30/24 14:00 Acetaminophen/ Hydrocodone Bitart 1 tab Q4HP PRN PO 12/30/24 13:30 12/31/24 09:23 1 TAB Furosemide 20 mg BIDD PO 12/30/24 22:45 Examination: GENERAL:Normal, HEENT:Normal, NECK:Normal, LUNGS:Normal, CVS:Abnormal (elevated BP- home meds resumed, today patient has a reported low bp, however, bp cuff found to be far too large for extremity it was being used on. new cuff applied+ normtensive ), ABDOMEN:Normal, MSK:Normal, SKIN:Normal, NEURO:Normal (patient reported great improvment in pre operative symptomes, legs improved.), :Normal Problem List/Assessment/Plan Problems: (1) Muscle spasm of back (2) Postoperative pain after spinal surgery Assessment and Plan preoperative symptoms have improved. Patient is progressing well Mobility is improving Patient is able to get herself up to the bedside commode and returned to bed independently Patient is successfully working with physical therapy, tolerating a diet Patient is progressing to discharge Drain output documented is acceptable to DC today, patient tolerated well event of reported low BP per staff. arrived to find BP cuff excessively large for the extremity it was measuring, appropriate size cuff placed and patient found to be normotensive. originally ordered 500 ml NS bolus- not given after assessing BP for myself. labs ordered as well as FSBS POD # 2 Dx: Lumbar stenosis with neurogenic claudication, postoperative pain, muscle spasms -Disposition: -Pending -Discharge RX: Pending -Follow up appointment: [place] [id number] [facility] [address] [place] [address] -Pain: - IV pain meds post op day 1, with PO supplementation, goal is to progress weaning off IV medications and control pain with PO only. morphine 1mg q 4 hours (PAIN 7-10) - P.O. analgesics:Tylenol 650MG (PAIN 1-3) Lyons 10/325 mg (PAIN 4-6) - Muscle relaxers scheduled administration. This is a beneficial medications for the incisional pain as it is mostly related to muscle spasms. Flexeril 10 mg TID - Cepacol throat lozenges as needed for sore throat -Hold all chemical DVT/ blood thinners for 14 days postoperatively -use mechanical DVT PPX such as SCD's, ambulation -Activity: -Pending PT evaluation and patients progression -Sit at side of bed for meals -Goal: Ambulate independently and safely (may use assistive devices if needed) -Medical Therapy goals: -Afebrile- Patient may develop a expected post operative fever by day 2-3, this may not be accompanied with a elevation in WBC. if fever develops: Acetaminophen for fever. Albuterol nebulizer Tx every 12 hours for 24 hours to facilitate adequate lung expansion and prevent development of atelectasis. -Euglycemic: bloods sugars under 130mmol/L for optimal healing -Normotensive: Avoid events of hypertension. This helps to keep post operative healing intact and avoids destabilization of beneficial hemostatic coagulation. -Lumbar: -If patient is comfortable encouraged the patient to lay on their side to facilitate wound healing -Drains: -Hemovac drains: These will be to full compression unless otherwise ordered. Please record and document output AND characteristic of fluid present independently EVERY 6 hours more often as needed. if there in no output indicate this by documenting 0ml. If output is greater than 100 ml in one hour of amanda blood call provider. These drains will be removed once the drainage is at a acceptable level (generally less than 100ml in 24 hours) -Heidy dressing: This will stay in place and will be removed at the patients follow up visit. Nursing is to assess the seal and power source. The seal should be intact and the power source should have a green flashing light indicating it is functioning well. Batteries can last up to 14 days. If a leak develops the dressing edges can be reinforced with a Tegaderm dressing to reestablish intact seal. The Heidy dressing is NOT a wound vac. This does not get changed, it does not need home health management. -Record output independently, drain 1. Is a deep drain and drain 2. Is a superficial drain. Wound drainage is described by type, color, amount, and odor. Drainage can be 1 Serous: Clear and thin, may be present in healing healthy wound. 2 Serosanguineous containing blood may also be present and healthy healing wound 3. Sanguinous primarily blood 4. Purulent this is thick, white, and pus like. It may be indicated to give of a infection and should constitute a call to the provider immediately with the plan that the sample should be cultured. -Dressings Take care not to disrupt the HEIDY dressing seal. If there is a break in the seal it can be trouble shot with a Tegaderm dressing. -Dressing to Hemovac drains may be changed once the drains have been removed by the provider. -Bowel management: -Colace 100mg bid -Diet: -Clear liquid diet and advance as patient tolerates within dietary limitations ( example: diabetic, Cardiac) -Incentive Spirometer: -10 x hour while awake, RN please educate and observe repeat demonstration, have IS at bedside POD #1 -X-rays: - none indicated at this time -Consults: -Physical Therapy evaluation, treatment recommendations, and discharge recommendations Call with questions Angelica Funk ACNP- Orthopaedic Spine Surgery nurse practitioner For Dr Robbie Lewis Patient was examined, chart reviewed, labs evaluated, and diagnostic studies and findings analyzed. Case was discussed with Dr. Ricardo Lewis who formulated the plan of care. This medical document was created using an electronic medical record system with [employer] ([place]) dictation system. Although this document has been carefully reviewed, there might still be some phonetic and typographical errors. These areas are purely typographical due to imperfections of the software programs, and do not reflect any compromise in the patient's medical care. My Orders My Orders Orders - JAQUELIN FUNK ASSISTANT PRODUCE MANAGER Procedure Category Date Status Time Fluoxetine Capsule PHA 12/31/24 In Process (Prozac Capsule) 10:00 Potassium Er Tablet PHA 12/31/24 In Process (Klor-Con Tablet) 10:00 Pregabalin Capsule PHA 12/30/24 In Process (Lyrica Capsule) 22:00 Chlorthalidone PHA 12/31/24 In Process (Chlorthalidone) 07:00 Cholecalciferol PHA 12/31/24 In Process Tablet (Vitamin D3 10:00 Ferrous Sulfate Tablet PHA 12/31/24 In Process 10:00 (Nf) Finerenone PHA 12/31/24 In Process (Kerendia) 10:00 Hydroxyzine Oral PHA 12/31/24 In Process (Vistaril Oral) 10:00 Nifedipine Er PHA 12/31/24 In Process (Procardia Xl 10:00 (Nf) Tizanidine PHA 12/30/24 In Process Hydrochloride 14:00 Hydrocodone-Acet PHA 12/30/24 In Process 10/325mg Tab (Lyons 13:30 Carvedilol Tablet PHA 12/31/24 In Process (Coreg Tablet) 08:00 Clonidine Hcl Tablet PHA 12/31/24 In Process (Catapres Tablet) 06:00 Furosemide Tablet PHA 12/30/24 In Process (Lasix Tablet) 22:45 Plan discussed with Plan discussed with: Patient, Other (bed side RN) Visit Coding Surgery Date of Service if different f: Jan 01, 2025 Billing Provider: JAQUELIN FUNK NP Surgery Visit Codes: NOT BILLABLE JAQUELIN FUNK NP Dec 31, 2024 11:27
[2024-12-31] MEDS: SODIUM CHLORIDE 0.9% 500 ML IV ONE (17:15)
[2024-12-31] MEDS ORDERED: DEXTROSE (50%) 50ML SYRG IV PRN (17:30)
[2024-12-31] MEDS: ACCU-CHEK COMFORT CURVE STRIP VI STA (17:55)
[2024-12-31 21:50] LABS: Basophils # (auto) 0 10 ^3/uL (0-0.2); Basophils % (auto) 0.4 % (0.0-2.0); Eosinophils # (auto) 0 10 ^3/uL (0-0.8); Eosinophils % (auto) 0.8 % (0.0-7.0); Hemoglobin 8.7 g/dL (12.2-16.2); Lymphocytes # (auto) 1.8 10 ^3/uL (0.4-5.4); Lymphocytes % (auto) 31.8 % (10.0-50.0); Mean Corpuscular Hemoglobin 25.4 pg (28.0-32.0); Mean Corpuscular Hgb Conc. 32.3 g/dL (32.0-36.0); Mean Corpuscular Volume 78.7 fL (80.0-100.0); Monocytes # (auto) 0.8 10 ^3/uL (0-1.3); Monocytes % (auto) 13.8 % (0.0-12.0); Neutrophils # (auto) 3.1 10 ^3/uL (1.6-8.6); Neutrophils % (auto) 53.2 % (37.0-80.0); Nucleated Red Blood Cells % 0.1 %; Platelet Count (auto) 211 10^3/uL (140-450); Red Blood Cells 3.43 10^6/uL (4.0-5.20); Red Cell Distribution Width 16.8 % (11.8-14.3); White Blood Cell 5.8 10^3/uL (4.4-10.8)
[2024-12-31 21:57] LABS: Chloride 104 mmol/L (98-107); Sodium 138 mmol/L (136-145)
[2024-12-31 21:58] LABS: Anion Gap 7 (5-15); Calcium 8.7 mg/dL (8.7-10.4); Carbon Dioxide 27 mmol/L (20-31)
[2024-12-31] MEDS: InsuLIN REG 1unit/0.01ml Soln (100units/ml) SC SCH (22:00)
[2024-12-31 22:03] LABS: BUN/Creatinine Ratio 14.4 (10.0-20.0)
[2024-12-31 22:07] LABS: Blood Urea Nitrogen 29 mg/dL (9-23); Glucose 144 mg/dL (74-106)
[2024-12-31] MEDS: ACCU-CHEK COMFORT CURVE STRIP VI SCH (22:26)
[2025-01-01] VITALS (8 sets, daily range): BP systolic 100–133; BP diastolic 63–86; PULSE 53–65; RESP 16–20; TEMP 97.1–98.1; O2SAT 91–98
[2025-01-02] VITALS (7 sets, daily range): BP systolic 93–147; BP diastolic 52–81; PULSE 52–72; RESP 17–20; TEMP 97.6–98.1; O2SAT 90–96
--- NOTE | 2025-01-02 17:04 | DVHDS2 ---
Discharge Summary Date of Admission Dec 29, 2024 at 14:06 Date of Discharge: Jan 02, 2025 Labs/Diagnostic Data: Laboratory Results Test 01/02/25 16:33 12/31/24 21:22 POC Glucose 90 mg/dl (70-106) White Blood Count 5.8 10^3/uL (4.4-10.8) Red Blood Count 3.43 10^6/uL (4.0-5.20) Hemoglobin 8.7 g/dL (12.2-16.2) Hematocrit 27.0 % (36.0-46.0) Mean Corpuscular Volume 78.7 fL (80.0-100.0) Mean Corpuscular Hemoglobin 25.4 pg (28.0-32.0) Mean Corpuscular Hemoglobin Concent 32.3 g/dL (32.0-36.0) Red Cell Distribution Width 16.8 % (11.8-14.3) Platelet Count 211 10^3/uL (140-450) Mean Platelet Volume 9.0 fL (6.9-10.8) Neutrophils (%) (Auto) 53.2 % (37.0-80.0) Lymphocytes (%) (Auto) 31.8 % (10.0-50.0) Monocytes (%) (Auto) 13.8 % (0.0-12.0) Eosinophils (%) (Auto) 0.8 % (0.0-7.0) Basophils (%) (Auto) 0.4 % (0.0-2.0) Neutrophils # (Auto) 3.1 10 ^3/uL (1.6-8.6) Lymphocytes # (Auto) 1.8 10 ^3/uL (0.4-5.4) Monocytes # (Auto) 0.8 10 ^3/uL (0-1.3) Eosinophils # (Auto) 0 10 ^3/uL (0-0.8) Basophils # (Auto) 0 10 ^3/uL (0-0.2) Nucleated Red Blood Cells 0.1 % Sodium Level 138 mmol/L (136-145) Potassium Level 3.0 mmol/L (3.5-5.1) Chloride Level 104 mmol/L (98-107) Carbon Dioxide Level 27 mmol/L (20-31) Anion Gap 7 (5-15) Blood Urea Nitrogen 29 mg/dL (9-23) Creatinine 2.01 mg/dL (0.550-1.02) Glomerular Filtration Rate Calc 30 mL/min (>90) BUN/Creatinine Ratio 14.4 (10.0-20.0) Serum Glucose 144 mg/dL (74-106) Calcium Level 8.7 mg/dL (8.7-10.4) Other Laboratory Tests 12/31/24 21:22 Brief Hx & Hospital Course: This is a 49-year-old female with hypertension morbid obesity BMI 46 admitted by orthopedic surgeon and underwent a successful in the lumbar spine surgery. Postop she is doing well. However she is on multiple medications and given her medical history hospitalist consultation is obtained. Currently patient feels better however still has some back pain after surgery. She is participating with physical therapy. She is admitted by orthopedic surgeon underwent successful lumbar spine surgery. Postop patient did well. No acute events identified. She is ambulating without significant pain. She is back to baseline normal status therefore she is requesting to be discharged home. Social Service consultation done and home health is being arranged and she was advised to follow up with the orthopedic surgeon next week post surgery follow up for her lumbar spine surgery and dressing changes and further evaluation management. Patient verbalized understanding of this and agree with the discharge care plan as outlined. Operations or Procedures Operative Report - 2 Report Details Date: 12/29/24 Preop Diagnosis: lumbar spinal stenosis Postop Diagnosis: lumbar spinal stenosis Surgeon: Ricardo Lewis MD Weighmaster Lead: Tamiko Funk NP Anesthesiologist: Dr. Flores Anesthesia: General Consent: The patient was informed of the risks and benefits of the procedure. These include but are not limited to complications of anesthesia, postoperative infection, incomplete relief of symptoms, recurrence of symptoms, damage to blood vessels, nerves and tendons, deep venous thrombosis, pulmonary embolism and possible need for repeat surgery in the future. Name of Procedure Performed see detailed note Procedure Details Procedure Details: Pre-op Diagnosis: Lumbar Degenerative Disk Disease and Lumbar Spinal Stenosis causing Incapacitating back pain, radiculopathy and progressive neurologic deficit Post-op Diagnosis: Lumbar Degenerative Disk Disease and Lumbar Spinal Stenosis causing Incapacitating back pain, radiculopathy and progressive neurologic deficit Procedure: Lumbar 5 laminectomy with Lumbar 5 foraminotomies and facetectomies to decompress central canal and Lumbar 5 nerve roots Lumbar 4 laminectomy with Lumbar 4 foraminotomies and facetectomies to decompress central canal and Lumbar 4 nerve roots Lumbar 3 laminectomy with Lumbar 3 foraminotomies and facetectomies to decompress central canal and Lumbar 4 nerve roots Lumbar 3 to 4 posterior spinal interbody fusion with PEEK cage Lumbar 4 to 5 posterior spinal interbody fusion with PEEK cage Lumbar 3 to 5 posterior spinal instrumentation with pedicle screws Local Bone Autograft For Fusion Allograft Bone Substitute (Bacterin) to augment Fusion Use of Demineralized Bone Matrix to Augment Fusion Microscope For Microdissection Surgeon: Ricardo Lewis MD Assist: CHRIS Chen Anesthesia: General Fluids and EBL: See anesthesia note Patient was seen in the Pre Anesthesia Care Unit (PACU) and the operative site was initialed by me. All questions were answered to the patients satisfaction and chart reviewed. The patient was taken to the operative room where pre- operative antibiotics were given 30 minutes prior to incision. General anesthesia was induced and neuro-monitoring leads placed. Hanley catheter was placed. The patient was turned prone onto the I-Jamison spinal table. While positioning, I made sure that the belly was free to allow proper expansion of the lungs. The hips were extended and all bony prominences padded. The shoulders were abducted 80 degree and the elbows flexed 100 degrees with no tension on the brachial plexus. I check the foot arterial pulses and they were palpable. The patient was prepped and draped and time out was taken at this time per usual protocol. At this time, the C-arm fluoroscope was brought in and was used to lisy the incision borders proximally and distally. Using a Number 10 Blade, an incision was made extending it proximally and distally per C arm lisy from the posterior spinous process of lumbar 4,5 down to the lumbo-dorsal fascia. All bleeding was controlled with electrocautery. Self-retaining retractors were placed. Electrocautery was then used to take down the lumbo- dorsal fascia, to free the muscle off the bone bilaterally. A Prema retractor was placed over the posterior spinous process proximally and a lateral C-arm fluoroscope image was taken to insure we were at the correct level. Next, using bovie electro cautery, The deep fascia laterally to the facet joints was removed to expose the transverse processes of lumbar 3, 4 and 5 while taking care to avoid injuring the facet capsule at the proximal end of the incision. Next, the microscope was bought in for visualization and using a Luxell rongeur, the posterior spinous process of lumbar 3 and 4 and 5 bone were removed and the bone was saved for use as local autograft. I used alternating Kerison 2 mm and 3 mm rongeurs to perform central laminectomies lumbar 5 and 4 and 3 to decompress the central canal. Next using alternating Kerison 2mm and 3 mm rongeurs, the superior articular facets of lumbar 3, 4 and 5 were removed bilaterally to decompress the lateral recess (facetectomies) and then extended proximally to decompress the foramen bilaterally (foraminotomies). I used a ball tipped nerve probed to insure that the respective nerve roots were able to be mobilized 5mm in each direction were unimpeded in the lateral recess and foramen. Next I carefully inspected the dura to make sure no durotomy was visible and it was not. I retracted the right lumbar 5 nerve medially and used increasing size fran until the proper size prepared and then inserted a [id number] PEEK cage in to the disc space at L4/5 using C arm fluoroscopy. I repeated this process at the L3/4 level. At this level it was a [id number] PEEK cage. I covered the exposed dura with gelfoam soaked in thrombin and the microscope was wheeled away from the operative filed. The C-arm fluoroscope was brought in and perfect AP views of the lumbar 4 and 5 pedicles were obtained. I placed bilateral pedicle screws at these levels by: using a Lenke awl to make a airplane pilot commercial hole, then a ball tip robe to make sure there was no pedicle breach, then a tap to prepare the track and a 6.5 mm diameter 45 mm length pedicle screw was placed bilaterally. This step to place bilateral pedicle screws was repeated up to the lumbar 3, 4 and 5 level. Next, the c-arm fluoroscope took an AP and lateral x-ray to ensure proper placement of the pedicle screws. Next, the neuro-stimulation probe was placed over the tip of each screw and each screw stimulated only after a current greater than 10 mA was delivered to the screw. Next , I took a Midas Jin Drill to decorticate the transverse process which were exposed and local bone graft, Bacterin allograft bone substitute and Demineralized bone matrix were placed along the inter transverse process intervals bilaterally (the fusion bed). Next a curved miko sized to fit the pedicle screw interval was placed and secured to each pedicle screw using set screws, The set screws were tightened using a torque screwdriver (set to 10 N*M torque) to secure the miko to the pedicle screws bilaterally. Final AP and lateral C arm fluoroscopic films were taken at this time. Next a 10 Maltese diameter Hemovac drain was laced deep to the lumbo- dorsal fascia. The lumbo-dorsal fascia was closed with interrupted 0-Vicry sutures. The subcutaneous tissue was closed with interrupted 2-0 Vicryl sutures. The skin was closed with running 2-0 nylon suture. Sterile dressings were place. The pt. was turned supine onto the stretcher, extubated and taken to the recovery room in stable condition. At the end of the case a TLSO brace was placed as well as an external bone stimulator. Condition Stable Condition at Discharge: Stable Final Diagnosis/Problems List S/P SPINAL FUSION/DECOMPRESSION, HTN Discharge Disposition: Home Discharge Instruct/Medications Diet: Consistent carbohydrate, Cardiac 2g Na,low cholest Activity: No Restrictions, As Tolerated Activity comment: with walker Follow Up/Referral: next week as you are scheduled and PCP 2 week Medications: home medications Continued Medications: Carvedilol (Carvedilol) 25 Mg Tab 25 MG PO Q12HR for 30 Days, MG Chlorthalidone (Chlorthalidone) 50 Mg Tab 1 TAB PO QAM Cholecalciferol (Vitamin D3) 2,000 Unit Tab 1 TAB PO DAILY, #30 TAB 5 Refills Clonidine Hydrochloride (Clonidine Hcl) 0.2 Mg Tab 0.2 MG PO TID, TAB Take if SP >190 or DP >90 Ferrous Sulfate (Ferrous Sulfate) 325 Mg Tab 325 MG PO DAILY for 30 Days, MG Finerenone (Kerendia) 10 Mg Tab 10 MG PO DAILY, TAB Fluoxetine Hcl (Fluoxetine Hcl) 20 Mg Cap 20 MG PO DAILY for 30 Days, MG Furosemide (Furosemide) 20 Mg Tab 20 MG PO BID, TAB Hydrocortone (Hydrocortisone 2.5%) 1 Applic Ap 1 APPLIC [place] PRN, APPLIC Hydroxyzine HCl (Hydroxyzine Hydrochloride) 25 Mg Tab 25 MG PO DAILY, TAB Nifedipine (Nifedipine Er) 60 Mg Tab 60 MG PO DAILY, TAB Ondansetron HCl (Ondansetron) 4 Mg Tab 4 MG PO TID, TAB Oxycodone W/ Acetaminophen (Oxycodone/Acetaminophen 10-300 mg) 1 Tab Tab 1 TAB PO QID, TAB Potassium Chloride (Klor-Con M20) 20 Meq Tab 20 MEQ PO, TAB Pregabalin (Pregabalin) 75 Mg Cap 75 MG PO BID, CAP Tizanidine Hydrochloride (Zanaflex) 4 Mg Cap 1 CAP PO TID, #90 CAP Discharge Statement: "Patient was advised to return to the ER or call 911 if any headaches, dizziness, shortness of breath, chest pain, abdominal pain, bleeding, fevers, or worsening of medical condition. Patient was counseled about treatment plan, medications, possible side effects, patientverbalized understanding. All questions were answered to the best of my ability. This discharge took greater then 30 minutes in planning, reviewing documentation, counseling the patient, and discussing with other team members." ASSESSMENT ASSESSMENT Assessment S/P SPINAL FUSION/DECOMPRESSION, HTN GEOVANNA PADRON MD Jan 02, 2025 17:04
--- NOTE | 2025-01-02 17:08 | DVHINCON2 ---
Date of service: Jan 01, 2025 Reason for Consultation Medical management while in the hospital History of Present Illness This is a 49-year-old female with hypertension morbid obesity BMI 46 admitted by orthopedic surgeon and underwent a successful in the lumbar spine surgery. Postop she is doing well. However she is on multiple medications and given her medical history hospitalist consultation is obtained. Currently patient feels better however still has some back pain after surgery. She is participating with physical therapy. Past Medical History Morbid obesity, DJD lumbar spine, hypertension Past Surgical History Cervical spine surgery Family History: Cancer G8 MOTHER, G8 FATHER Diabetes mellitus G8 MOTHER, G8 FATHER FH: aneurysm G8 MOTHER, , Onset:Unknown FH: kidney failure G8 MOTHER, , Onset:Unknown G8 FATHER, Onset:Unknown FH: lung cancer G8 MOTHER, AUNTIE Family history: Cardiovascular disease G8 MOTHER, Family history: Diabetes mellitus G8 MOTHER, G8 FATHER Family history: Hypertension G8 MOTHER, G8 FATHER G8 BROTHER Stroke G8 MOTHER, Allergies: Coded Allergies: Beadle (Verified Allergy, Intermediate, 06/02/21) itching, rash Latex (Verified Allergy, Unknown, 04/18/23) Lisinopril (Unverified Allergy, Unknown, Can't tolerate oral tablet, IV use only, 12/28/24) Aspirin (Verified Adverse Reaction, Severe, 06/02/21) heart palpitations, sweating, vomitting Ibuprofen (Unverified Adverse Reaction, Intermediate, GI bleed, 12/28/24) Home Meds Reported Medications Ondansetron HCl (Ondansetron) 4 Mg Tab, 4 MG PO TID, TAB 12/28/24 Pregabalin (Pregabalin) 75 Mg Cap, 75 MG PO BID, CAP 12/28/24 Finerenone (Kerendia) 10 Mg Tab, 10 MG PO DAILY, TAB 12/28/24 Furosemide (Furosemide) 20 Mg Tab, 20 MG PO BID, TAB 12/28/24 Hydroxyzine HCl (Hydroxyzine Hydrochloride) 25 Mg Tab, 25 MG PO DAILY, TAB 12/28/24 Oxycodone W/ Acetaminophen (Oxycodone/Acetaminophen 10-300 mg) 1 Tab Tab, 1 TAB PO QID, TAB 12/28/24 Potassium Chloride (Klor-Con M20) 20 Meq Tab, 20 MEQ PO, TAB 09/27/23 Hydrocortone (Hydrocortisone 2.5%) 1 Applic Ap, 1 APPLIC [place] PRN, APPLIC 09/24/23 Clonidine Hydrochloride (Clonidine Hcl) 0.2 Mg Tab, 0.2 MG PO TID, TAB Take if SP >190 or DP >90 09/24/23 Nifedipine (Nifedipine Er) 60 Mg Tab, 60 MG PO DAILY, TAB 09/24/23 Ferrous Sulfate (Ferrous Sulfate) 325 Mg Tab, 325 MG PO DAILY for 30 Days, MG 04/17/23 Cholecalciferol (VITAMIN D3) 2,000 Unit Tab, 1 TAB PO DAILY, #30 TAB 5 Refills 04/17/23 Carvedilol (Carvedilol) 25 Mg Tab, 25 MG PO Q12HR for 30 Days, MG 04/17/23 Tizanidine Hydrochloride (Zanaflex) 4 Mg Cap, 1 CAP PO TID, #90 CAP 04/17/23 Fluoxetine Hcl (Fluoxetine Hcl) 20 Mg Cap, 20 MG PO DAILY for 30 Days, MG 04/17/23 Chlorthalidone (Chlorthalidone) 50 Mg Tab, 1 TAB PO QAM 06/02/21 Discontinued Reported Medications Pregabalin (Pregabalin) 50 Mg Cap, 50 MG PO DAILY, CAP Take 1 tablet by mouth in the morning, 2 tablets by mouth in the evening 09/27/23 Vit W/ Ferrous Fumara ( One Daily) Daily Tab, 1 TAB PO DAILY, #30 TAB 11 Refills 09/24/23 Lisinopril (Lisinopril) 40 Mg Tab, 40 MG PO DAILY, TAB 09/24/23 Hydralazine Hcl (Hydralazine Hcl) 50 Mg Tab, 50 MG PO TID for 30 Days, MG 04/17/23 Hydrocodone-Acetaminophen (Hydrocodone Bitartrate/AC 10-325 mg) 1 Tab Tab, 1 TAB PO Q6HPRN, TAB 04/17/23 Review of Systems Denies any chest pain shortness of breath. No headache dizziness or lightheadedness. No fevers chills or sweats. Other review of system to be no rmal. Vital Signs Vital Signs Date Time Temp Pulse Resp B/P (MAP) Pulse Ox O2 Delivery O2 Flow Rate FiO2 01/02/25 13:24 93/59 01/02/25 13:00 97.6 52 18 93 97.6 01/02/25 08:00 Room Air* 0 N/A Nasal Cannula* Physical Exam Alert awake oriented x3. Comfortable in bed without distress. HEENT neck supple no rigidity pupils equal round react to light. Heart regular rate and rhythm S1-S2 without murmurs or gallops. Lungs fair amount without rales wheezes chest tube explained. Abdomen is obese soft nontender positive bowel sounds nondistended. Extremities no edema positive pulses. Lower back region is covered with a dressing with a marco a drain. Labs/Diagnostic Data Labs Test 01/02/25 16:33 12/31/24 21:22 Range/Units POC Glucose 90 70-106 mg/dl White Blood Count 5.8 4.4-10.8 10^3/uL Red Blood Count 3.43 L 4.0-5.20 10^6/uL Hemoglobin 8.7 L 12.2-16.2 g/dL Hematocrit 27.0 L 36.0-46.0 % Mean Corpuscular Volume 78.7 L 80.0-100.0 fL Mean Corpuscular Hemoglobin 25.4 L 28.0-32.0 pg Mean Corpuscular Hemoglobin Concent 32.3 32.0-36.0 g/dL Red Cell Distribution Width 16.8 H 11.8-14.3 % Platelet Count 211 140-450 10^3/uL Mean Platelet Volume 9.0 6.9-10.8 fL Neutrophils (%) (Auto) 53.2 37.0-80.0 % Lymphocytes (%) (Auto) 31.8 10.0-50.0 % Monocytes (%) (Auto) 13.8 H 0.0-12.0 % Eosinophils (%) (Auto) 0.8 0.0-7.0 % Basophils (%) (Auto) 0.4 0.0-2.0 % Neutrophils # (Auto) 3.1 1.6-8.6 10 ^3/uL Lymphocytes # (Auto) 1.8 0.4-5.4 10 ^3/uL Monocytes # (Auto) 0.8 0-1.3 10 ^3/uL Eosinophils # (Auto) 0 0-0.8 10 ^3/uL Basophils # (Auto) 0 0-0.2 10 ^3/uL Nucleated Red Blood Cells 0.1 % Sodium Level 138 136-145 mmol/L Potassium Level 3.0 L 3.5-5.1 mmol/L Chloride Level 104 98-107 mmol/L Carbon Dioxide Level 27 20-31 mmol/L Anion Gap 7 5-15 Blood Urea Nitrogen 29 H 9-23 mg/dL Creatinine 2.01 H 0.550-1.02 mg/dL Glomerular Filtration Rate Calc 30 >90 mL/min BUN/Creatinine Ratio 14.4 10.0-20.0 Serum Glucose 144 H 74-106 mg/dL Calcium Level 8.7 8.7-10.4 mg/dL Problems(with codes): (1) Hypertension (2) Constipation (3) Anemia of chronic disease (4) Muscle spasm of back (5) Postoperative pain after spinal surgery Plan/Recommendation Her blood pressure normal range. Resume her blood pressure medications. We will resume her neuropathy and other medications she takes at home. IV fluids. Continue pain nausea medications. Physical therapy. DVT GI prophylaxis. Supportive care and treatment. Otherwise follow clinically management per clinical course. Plan discussed with: Patient GEOVANNA PADRON MD Jan 02, 2025 17:08
== END 2025-01-02 18:24 | disposition home health service (06) | DRG 448 ==
LOC: SUR 08:38 → OVERFLOW 14:06 → TELE-WESTW 16:38
PROVIDERS: ADMIT Hospitalist; ATTEND Hospitalist
PROC: 01NB0ZZ Release Lumbar Nerve, Open Approach (ICD-10-PCS; 2024-12-29)
PROC: 4A11X4G Monitoring of Peripheral Nervous Electrical Activity, Intraoperative, External Approach (ICD-10-PCS; 2024-12-29)
PROC: 00NY0ZZ Release Lumbar Spinal Cord, Open Approach (ICD-10-PCS; 2024-12-29)
PROC: 0SG10AJ Fusion of 2 or more Lumbar Vertebral Joints with Interbody Fusion Device, Posterior Approach, Anterior Column, Open Approach (ICD-10-PCS; principal; 2024-12-29 10:44)
DX: M48.062 Spinal stenosis, lumbar region with neurogenic claudication (principal); Z68.42 Body mass index [BMI] 45.0-49.9, adult; E66.01 Morbid (severe) obesity due to excess calories; E11.9 Type 2 diabetes mellitus without complications; I10 Essential (primary) hypertension; M48.02 Spinal stenosis, cervical region; M54.16 Radiculopathy, lumbar region; Z98.1 Arthrodesis status; Z83.3 Family history of diabetes mellitus; Z82.3 Family history of stroke; Z80.1 Family history of malignant neoplasm of trachea, bronchus and lung; Z82.49 Family history of ischemic heart disease and other diseases of the circulatory system; Z79.899 Other long term (current) drug therapy
CPT/HCPCS: 36415; 72100; 76000; 80048; 82962; 85025; 86850; 86900; 86901; 97110; 97116; 97163; 97530; G0378; J1815; J1956; J7042